=== PATIENT | male | born 1940 | race Caucasian/White ===

== ENCOUNTER → 2017-01-20 | Outpatient (CLI) | payer BC ==
[2017-01-20 10:46] LABS: BASO % 0.1 %; BASO ABS # 0.01 K/uL (0-0.2); COMPLETE YES; EOS % 4.4 %; HEMATOCRIT 52.8 % (42-52); IG% 0.3 %; LYMPH % 21.9 %; LYMPH ABS # 1.63 K/uL (1.2-3.4); MEAN CELL VOLUME 95.8 fL (80-100); MEAN CORPUSCULAR HEMOGLOBIN 32.1 pg (25-34); MEAN CORPUSCULAR HGB CONC 33.5 g/dl (32-36); MEAN PLATELET VOLUME 10.7 fL (7.4-10.4); MONO % 6.6 %; NEUT % 66.7 %; PLATELET COUNT 270 K/uL (130-400); RED BLOOD COUNT 5.51 M/uL (4.7-6.1); WHITE BLOOD COUNT 7.44 K/uL (4.8-10.8)
[2017-01-20 10:58] LABS: CALCIUM 8.9 mg/dl (8.5-10.1)
[2017-01-20 11:07] LABS: ALB/GLOB RATIO 1.3 (0.9-2); ALKALINE PHOSPHATASE 80 U/L (45-117); ALT/SGPT 34 U/L (12-78); AST/SGOT 22 U/L (15-37); BLOOD UREA NITROGEN 16 mg/dl (7-18); BUN/CREATININE RATIO 14.2 (10-20); CARBON DIOXIDE 32 mmol/L (21-32); CHLORIDE 107 mmol/L (98-107); CHOLESTEROL 175 mg/dl (0-200); GLUCOSE 97 mg/dl (70-99); POTASSIUM 4.4 mmol/L (3.5-5.1); SODIUM 143 mmol/L (136-145); TRIGLYCERIDES 116 mg/dl (0-150); VERY LOW DENSITY LIPOPROT CALC 23 mg/dl
[2017-01-20 11:08] LABS: CHOLESTEROL/HDL RATIO 3.8; HDL CHOLESTEROL 46 mg/dl; LDL CHOLESTEROL CALCULATED 106 mg/dl
--- NOTE | 2017-01-24 12:32 | CODING QUERY MEDICAL NECESSITY ---
CQSUPPORTING DIAGNOSIS NEEDED A supporting diagnosis is required for the test/procedure performed on this patient in order for us to be reimbursed by the patient's insurance. Please provide a supporting diagnosis for the following test/procedure listed below next to the test name along with your signature. *If there is no additional diagnosis for this patient that would support the following test/procedure please document that below next to the test/procedure. Test(s)/Procedure(s) that require a supporting diagnosis: DOS 01/20/17 PROSTATE SPECIFIC Provider Signature: Date: Thank you Jenn Miller [employer] Once completed, please kindly fax back to [phone] For questions please call [phone]
== END | disposition home or self-care (01) ==
LOC: C.LABBC 07:41
PROVIDERS: ATTEND Internal Medicine Pulmonary Disease
DX: E78.5 Hyperlipidemia, unspecified (principal); I10 Essential (primary) hypertension; I35.0 Nonrheumatic aortic (valve) stenosis; N40.0 Benign prostatic hyperplasia without lower urinary tract symptoms

== ENCOUNTER 2022-02-05 05:52 | Observation (INO) ==
--- NOTE | 2022-01-10 12:29 | PAT Medication Instructions ---
Medication Instructions Date of Service January 10, 2022 Home Medications Medication Instructions Recorded alprazolam 0.5 mg tablet 0.5 mg PO DAILY PRN #30 tab 09/26/20 carvedilol 6.25 mg tablet 6.25 mg PO BID #180 tab 04/30/21 imipramine HCl 10 mg tablet 10 mg PO HS #90 tab 04/30/21 indapamide 1.25 mg tablet 1.25 mg PO QAM #90 tab 04/30/21 losartan 100 mg tablet 100 mg PO QPM #90 tab 04/30/21 multivitamin (Multiple Vitamins) 1 tab PO QAM levocetirizine 5 mg tablet (Xyzal) 5 mg PO DAILY PRN alprazolam 0.5 mg tablet 0.5 mg PO DAILY PRN carvedilol 6.25 mg tablet 6.25 mg PO BID imipramine HCl 10 mg tablet 10 mg PO HS indapamide 1.25 mg tablet 1.25 mg PO QAM losartan 100 mg tablet 100 mg PO QPM famotidine 20 mg tablet (Pepcid) 20 mg PO DAILY PRN aspirin 81 mg tablet,delayed release (Aspirin Low Dose) 81 mg PO QPM rosuvastatin 20 mg tablet 20 mg PO QPM DO NOT take the morning of surgery multivitamin (Multiple Vitamins) 1 tab PO QAM levocetirizine 5 mg tablet (Xyzal) 5 mg PO DAILY PRN indapamide 1.25 mg tablet 1.25 mg PO QAM Take morning of surgery With a small sip of water, OTHERWISE NOTHING TO EAT OR DRINK AFTER MIDNIGHT: alprazolam 0.5 mg tablet 0.5 mg PO DAILY PRN(if needed) carvedilol 6.25 mg tablet 6.25 mg PO BID famotidine 20 mg tablet (Pepcid) 20 mg PO DAILY PRN(if needed) Take evening before surgery carvedilol 6.25 mg tablet 6.25 mg PO BID imipramine HCl 10 mg tablet 10 mg PO HS losartan 100 mg tablet 100 mg PO QPM aspirin 81 mg tablet,delayed release (Aspirin Low Dose) 81 mg PO QPM rosuvastatin 20 mg tablet 20 mg PO QPM Other Notes If you have any questions please call us at [phone] or [phone] or [phone] or [phone]
--- NOTE | 2022-01-11 14:27 | Anesthesiology Consultation ---
Date of Service January 11, 2022 Assessment & Plan (1) Encounter for pre-operative examination: - COVID screening: Per assessment on 01/11: No known COVID-19 positive contacts or current COVID-19 related symptoms. Travel screen negative. Patient vaccinated. Surgeon arranging preop COVID testing. Awaiting results. - Cardiology office visit (01/11/22): "Patient has a 70% to 80% stenosis in a single branch vessel (proximal OM2) but has nonobstructive CAD otherwise -- he is completely asymptomatic with regards to his branch vessel disease. Based on his high functional status without limiting cardiopulmonary symptoms, normal LV systolic function, and normally functioning bioprosthetic AVR -- patient is an acceptable surgical risk to proceed with partial right nephrectomy as scheduled. There is no need for further ischemic workup at this time. Patient was advised to take his usual dose of Coreg 6.25 mg on the morning of surgery with sips of water. Patient was advised to hold Losartan the evening before surgery. If necessary, patient may stop Aspirin for 7 days leading up to his surgery. Patient verbalized understanding of these instructions." Patient states he was advised by surgeon to hold ASA 5 days prior to surgery (okay per cardiology). Chart Review Chart Review: Acceptable Risk for Surgery and Patient seen in Pre Admission Testing Teaching & Discussion Pre-Anesthesia Teaching/Discussion Notes: Instructed NPO after midnight before surgery,except medications with 15 cc of water. Medication instructions provided according to the PAT guidelines. History Surgery Operation Date: 02/05/22 07:30 Proposed Procedures p Robotic Laparoscopic Assisted Partial Nephrectomy Right - Christiano Silveira MD Height/Weight Height: 5 ft 7 in Weight: 79.8 kg Allergies Allergy/AdvReac Type Severity Reaction Status Date / Time cephalexin Allergy Mild RASH Verified 01/11/22 10:27 Penicillins Allergy Mild RASH Verified 01/11/22 10:27 Sulfa (Sulfonamide Allergy Mild RASH Verified 01/11/22 10:27 Antibiotics) Medications Home Medications Medication Instructions Recorded Confirmed Last Taken multivitamin (Multiple Vitamins) 1 tab PO QAM 05/03/19 01/11/22 11/12/20 levocetirizine 5 mg tablet (Xyzal) 5 mg PO DAILY PRN tab 03/20/20 01/11/22 Unknown alprazolam 0.5 mg tablet 0.5 mg PO DAILY PRN #30 tab 09/26/20 01/11/22 11/13/20 carvedilol 6.25 mg tablet 6.25 mg PO BID #180 tab 04/30/21 01/11/22 Unknown imipramine HCl 10 mg tablet 10 mg PO HS #90 tab 04/30/21 01/11/22 Unknown indapamide 1.25 mg tablet 1.25 mg PO QAM #90 tab 04/30/21 01/11/22 Unknown losartan 100 mg tablet 100 mg PO QPM #90 tab 04/30/21 01/11/22 Unknown famotidine 20 mg tablet (Pepcid) 20 mg PO DAILY PRN 07/09/21 01/11/22 Unknown aspirin 81 mg tablet,delayed 81 mg PO QPM 01/08/22 01/11/22 Unknown release (Aspirin Low Dose) rosuvastatin 20 mg tablet 20 mg PO QPM 01/08/22 01/11/22 Unknown Past Medical History Medical History Anxiety Aortic valve stenosis s/p TAVR 07/2021; follows with Dr. Hylton CAD (coronary artery disease) Non-obstructive CAD per 05/07/21 [facility] cardiac cath Diarrhea IBS Diverticular disease Dyslipidemia GERD (gastroesophageal reflux disease) will take OTC medication PRN History of basal cell carcinoma Hypertension Right kidney mass Sensorineural hearing loss (SNHL) of both ears Exercise / Class Metabolic Activity II 4-5 Yardwork/Stairs/Walk up hill (daily exercising with no CP or SOB (rowing machine, jogging, hiking)) Past Family History Family History Unknown Hypertension Coronary arteriosclerosis Other No family history of adverse response to anesthesia Past Surgical History Surgical History H/O cataract extraction H/O transurethral resection of prostate (2011) History of basal cell carcinoma (BCC) excision History of cardiac catheterization 04/2021 > no stents History of colonoscopy (2003) History of dental surgery History of detached retina repair History of hernia repair BL inguinal S/p TAVR (transcatheter aortic valve replacement), bioprosthetic Past Anesthesia History No Hx of Anesthesia Complications and No Family Hx of Anesthesia Complications History of PONV No Hx of PONV and No Hx of Motion Sickness Social History Smoking Status: Never smoker Do You Dip or Chew Tobacco: No Hx Alcohol Use: Yes Alcohol type: wine alcohol intake frequency: holidays/special occasions only Hx Substance Use: No substance use type: does not use Review of Systems Patient denies chest pain, shortness of breath, dyspnea on exertion, fever, chills, cough, wheezing, palpitations. Physical Exam Vital Signs VITALS BP 140/73 P 57 TEMP 97.9 SP02 99%RA RESP 18 PHYSICAL Mildly decreased cervical extension range of motion. Full TMJ range of motion. TMD 3.5 finger breaths Mallampati Score 3 Dentition: right upper side tooth missing, several implants (sides/molars) Lungs: clear throughout to auscultation Cardiac: regular rate and rhythm, no murmurs noted Spine: large mass over spine - (per patient, chronic/non-tender cyst under surveillance by dermatology) Carotid arteries: negative bruit Extremities: no edema Lab Results Anesthesia Preop Results Results Anesthesia Widget: WBC 7.84 K/uL (4.8-10.8) 01/11/22 Hgb 16.1 g/dL (14.0-18.0) 01/11/22 Hct 48.1 % (42-52) 01/11/22 Plt 259 K/uL (130-400) 01/11/22 Na 140 mmol/L (136-145) 01/11/22 K 4.2 mmol/L (3.5-5.1) 01/11/22 Cl 103 mmol/L (98-107) 01/11/22 CO2 32 mmol/L (21-32) 01/11/22 BUN 16 mg/dl (6-23) 01/11/22 Creat 1.03 mg/dl (0.6-1.4) 01/11/22 Glucose Level 105 mg/dl (70-99(Fasting)) H 01/11/22 Urine Color Yellow 01/11/22 Urine Appearance Clear (Clear) 01/11/22 Urine pH 6.5 (4.5-7.5) 01/11/22 Urine Specific [place] 1.010 (1.000-1.030) 01/11/22 Urine Protein Negative (Negative) 01/11/22 Urine Glucose (UA) Negative (Negative) 01/11/22 Urine Ketones Negative (Negative) 01/11/22 Urine Blood Negative (Negative) 01/11/22 Urine Nitrite Negative (Negative) 01/11/22 Urine Bilirubin Negative (Negative) 01/11/22 Urine Urobilinogen Negative (Negative) 01/11/22 Urine Leukocyte Esterase Negative (Negative) 01/11/22 Blood Type O Positive 01/11/22 Antibody Screen NEGATIVE 01/11/22 Testing Electrocardiogram Date: 08/21/21 SB with frequent PVCs at 72bpm. Improved NS inferior leads TWA. Chest X-Ray Date: 01/14/22 FINDINGS: PA and lateral chest radiographs are correlated with cardiac CT dated 06/26/2021. There is evidence of previous cardiac valve surgery. The heart is mildly enlarged. The pulmonary vasculature is noncongested. Nonspecific interstitial thickening is likely chronic. There is mild bibasilar scarring/atelectasis. The lungs and pleural spaces are otherwise clear. There is no pneumothorax. The skeletal structures are osteopenic. The bony thorax appears intact. IMPRESSION: Mild cardiomegaly with no active disease in the chest. Echocardiogram Date: 07/20/21 EF 65%. No RWMA. No LVH. s/p bioprosthetic aortic replacement (29mm [place]ill S3). The valve is well seated without elevated gradients or regurgitation . Stress Test Date: 04/10/20 Type: exercise Negative exercise stress echo/ECG for ischemia at > 100% MPHR. 10.1 METS. Cardiac Catheterization Date: 05/07/21 Proximal left main 20%. Mid LAD 40-50% followed by 20%. Ostial circumflex 30- 40%. Mid circumflex 30%. Distal circumflex 20%. Proximal OM to 70-80%. Proximal RCA 20% diffusely. Mid RCA 30-40%. Proximal PDA 30%. Mid PL 30-40%. Severe CAD involving OM. Otherwise, multivessel mild and moderate nonobstructive CAD. Previously documented severe aortic stenosis. Plan: Referral for aortic valve replacement evaluation (TAVR done 07/2021).
[2022-02-05] MEDS ORDERED: LR 15ML/HR IV SCH (06:00)
[2022-02-05] MEDS ORDERED: ceFAZolin 2000MG 2,000 MG/15 ML SYR IV SCH (06:00)
[2022-02-05] MEDS ORDERED: CLINDAMYCIN/D5W 600 MG/50 ML BAG IV SCH (06:00)
[2022-02-05] MEDS ORDERED: BUPIVACAINE 0.5 % 5 MG/1 ML MPF 30ML VIAL ONE (06:59)
[2022-02-05] MEDS ORDERED: MANNITOL 25% 12.5 GM/50 ML VIAL IV ONE ×2 (07:06→08:25)
[2022-02-05] MEDS ORDERED: CLINDAMYCIN 600 MG/D5W 50 ML BAG IV ONE (07:09)
[2022-02-05] MEDS ORDERED: MIDAZOLAM HCL 1 MG/ML 2ML VIAL ONE (07:11)
[2022-02-05] MEDS ORDERED: fentaNYL citrate 100 MCG/2 ML VIAL ONE (07:11)
[2022-02-05] MEDS ORDERED: ePHEDrine sulfate 50 MG/ML AMP IV PRN (07:13)
[2022-02-05] MEDS ORDERED: ATROPINE SULFATE 0.1 MG/ML 10ML SYR IV PRN (07:13)
[2022-02-05] MEDS ORDERED: ONDANSETRON INJ 2 MG/ML 2 ML VIAL IV PRN ×2 (07:13→12:30)
--- NOTE | 2022-02-05 07:14 | History & Physical Report ---
Date of Service February 05, 2022 Assessment & Plan (1) Right renal mass: Plan: Plan for definitive surgical treatment of the right renal mass - will approach for partial nephrectomy, but the mass is quite close to the vessels and in a challenging location, if any issues, we will convert to radical nephrectomy History of Present Illness Chief Complaint: right renal mass Primary Care Provider: Pk Schumacher MD 81y/o male w/ a right upper pole, posterior, renal mass discovered during w/u for TAVR now presenting for definitive treatment of the mass Allergies Allergy/AdvReac Type Severity Reaction Status Date / Time cephalexin Allergy Mild RASH Verified 02/05/22 06:31 Penicillins Allergy Mild RASH Verified 02/05/22 06:31 Sulfa (Sulfonamide Allergy Mild RASH Verified 02/05/22 06:31 Antibiotics) Home Medications Medication Instructions Recorded Confirmed Type multivitamin (Multiple Vitamins) 1 tab PO QAM 05/03/19 02/05/22 History levocetirizine 5 mg tablet (Xyzal) 5 mg PO DAILY PRN tab 03/20/20 02/05/22 History alprazolam 0.5 mg tablet 0.5 mg PO DAILY PRN #30 tab 09/26/20 02/05/22 Rx carvedilol 6.25 mg tablet 6.25 mg PO BID #180 tab 04/30/21 02/05/22 Rx imipramine HCl 10 mg tablet 10 mg PO HS #90 tab 04/30/21 02/05/22 Rx indapamide 1.25 mg tablet 1.25 mg PO QAM #90 tab 04/30/21 02/05/22 Rx losartan 100 mg tablet 100 mg PO QPM #90 tab 04/30/21 02/05/22 Rx famotidine 20 mg tablet (Pepcid) 20 mg PO DAILY PRN 07/09/21 02/05/22 History aspirin 81 mg tablet,delayed 81 mg PO QPM 01/08/22 02/05/22 History release (Aspirin Low Dose) rosuvastatin 20 mg tablet 20 mg PO QPM 01/08/22 02/05/22 History Past Med/Surg History Medical History Anxiety Aortic valve stenosis s/p TAVR 07/2021; follows with Dr. Hylton CAD (coronary artery disease) Non-obstructive CAD per 05/07/21 [facility] cardiac cath Diarrhea IBS Diverticular disease Dyslipidemia GERD (gastroesophageal reflux disease) will take OTC medication PRN History of basal cell carcinoma Hypertension Right kidney mass Sensorineural hearing loss (SNHL) of both ears Surgical History H/O cataract extraction H/O transurethral resection of prostate (2011) History of basal cell carcinoma (BCC) excision History of cardiac catheterization 04/2021 > no stents History of colonoscopy (2003) History of dental surgery History of detached retina repair History of hernia repair BL inguinal S/p TAVR (transcatheter aortic valve replacement), bioprosthetic Family History Unknown Hypertension Coronary arteriosclerosis Other No family history of adverse response to anesthesia Social History Smoking Status: Never smoker Second Hand Exposure: No; Do You Dip or Chew Tobacco: No; Hx Alcohol Use: Yes Alcohol type: wine Hx Substance Use: No Preferred Language: Italian Communication Ability: Effective 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 Beliefs That Will Affect Care: None marital status: Current Living Situation: Spouse current occupational status: retired current occupation: Retired Feels Safe at Home: Yes Safety Concerns: Feels Safe At This Time Assistive Devices: Contacts and Glasses Physical Exam Constitutional: well developed and well nourished Neck: neck nontender Respiratory: normal respiratory effort; no respiratory distress and does not use accessory muscles Cardiovascular: Rate/Rhythm: regular rate Vessels: radial pulses present Extremities: no edema Gastrointestinal (Abdomen): Inspection/Auscultation: abdomen normal to inspection Percussion/Palpation: abdomen soft; abdomen nontender and no guarding Musculoskeletal: Head/Neck/Chest: normocephalic and head atraumatic Extremities: extremities normal to inspection Skin: no rashes and no lesions Trauma: no evidence of skin trauma Neurologic: awake; not obtunded Speech / Cognition: normal speech Motor/Sensory: no tremor Psychiatric: Orientation: alert and oriented x 3 Genitourinary: no CVA tenderness Lymphatic: no lymphadenopathy Results & Data ([facility]) Vital Signs (Past 12 Hours) Vital Signs Temp Pulse Resp BP Pulse Ox 02/05/22 06:38 36.4 C L 18 L 18 143/86 H 94
[2022-02-05] MEDS ORDERED: GLYCOPYRROLATE 0.2 MG/ML VIAL ONE (08:41)
[2022-02-05] MEDS ORDERED: ROCURONIUM BROMIDE 10 MG/ML 5 ML VIAL IV ONE ×2 (08:41→10:04)
[2022-02-05] MEDS ORDERED: LARYING-O-JET KIT (LTA) ONE (08:41)
[2022-02-05] MEDS ORDERED: ePHEDrine sulfate 50 MG/ML SYR ONE (08:41)
[2022-02-05] MEDS ORDERED: LIDOCAINE 2% 2 ML VIAL/AMP(20MG/ML) INFIL ONE (08:41)
[2022-02-05] MEDS ORDERED: NEOSTIGMINE METHYLSULFATE 1 MG/ML 10ML VIAL ONE (08:41)
[2022-02-05] MEDS ORDERED: PROPOFOL IV EMULSION 10 MG/ML 20 ML VIAL IV ONE (08:41)
[2022-02-05] MEDS ORDERED: PHENYLEPHRINE 100MCG/ML 5ML SYR ONE (08:42)
[2022-02-05] MEDS ORDERED: ONDANSETRON INJ 2 MG/ML 2 ML VIAL ONE (08:42)
[2022-02-05] MEDS ORDERED: DEXAMETHASONE SOD INJ 4 MG/ML VIAL ONE (08:42)
[2022-02-05] MEDS ORDERED: PHENYLEPHRINE HCL 10 MG/ML VIAL ONE (10:00)
[2022-02-05] MEDS: fentaNYL citrate 100 MCG/2 ML VIAL IV PRN ×4 (11:07→11:29)
--- NOTE | 2022-02-05 11:13 | Operative Report ---
PG Post Operative Report Pre & Post Diagnosis Operation Date: 02/05/22 07:30 Pre-Op Diagnosis: Right Renal Mass Post-Op Diagnosis: Right Renal Mass I identified the patient and participated in the time-out.: Yes Procedure Operation Date: 02/05/22 07:30 Actual Procedures p Robotic Laparoscopic Assisted Right Radical Nephrectomy(Right) - Christiano Silveira MD Surgeon Christiano Silveira MD Chief Warden Mony Tsang; Dr. Jona More Estimated Blood Loss 150 Findings Consistent with Post-Op Diagnosis Specimens Right kidney Description of Procedure Patient was identified in the preoperative holding area, appropriate informed consents reviewed and completed and was transported to the operating suite. Upon arrival received clindamycin. Adequate general anesthesia was achieved and he was placed in the left side down right side up lateral decubitus position. Imaging was pulled up on the computers within the room and we began to insufflate the abdomen. I proceeded to place a robotic port approximately 7 cm below the rib edge along the lateral border of the rectus muscle. Inspection revealed a healthy abdomen without any trauma from the varus. I placed additional ports along the border of the rectus muscle with the highest port being just under the costal margin and 2 additional ports placed inferior to my initial entry location, each space by around 6 cm. I placed 2 midline orthotics prosthetics assistant ports, one immediately supraumbilical and the other approximately 8 cm more cephalad. I also marked a subxiphoid 5 mm liver retraction port. After placing the ports we docked the robot. His omentum draped across the right hemiabdomen I was able to gently retract that exposing the liver colon and underlying kidney. I incised laterally to the colon and mobilized it medially. I then kocherized the duodenum exposing the hilar structures and IVC. We were able to immediately identify the vein but rather than dissect in this area I dissected along the lateral border of the IVC until encountered the gonadal. We then dissected lateral to the gonadal and elevated the kidney. With instruments placed along the psoas I was able to stretch the hilar structures. There is a tubular white structure passing from the kidney down towards the IVCapproximately 4 cm below the renal vein. This was not consistent with p reoperative imaging for an artery and I did find the true artery just at the inferior edge of the vein. The lower structure ultimately proved to be the ureter which was consistent with preoperative imaging which shows the ureter traveling along the groove within the IVC. We dissected around this carefully. After dissecting the hilar structures and clearing a window around both artery and the vein I turned my attention to exposure of the kidney, mobilization of the kidney, and visualization of the mass. Given the location in the upper medial pole I thought this would require a full mobilization of the kidney and I incised outside of Gerota's fascia laterally and superiorly. I dissected the liver cephalad and placed the liver retractor to help hold it out of the way. After maximally mobilizing external to Gerota's I then incised Gerota's over the medial anterior portion of the kidney. After reaching the kidney surface we dissected a flap of fat laterally and pushed up behind the kidney. I continued to dissect around the cephalad most aspect of the kidney until I came to the medial portion. Unfortunately the medial portion is also the location of the tumor and was by far the most difficult to dissect. We continue to work through the posterior aspect of the kidney as well as the superior aspect and ultimately towards the medial side. Just as we are approaching this tumor we encountered venous structures and some bleeding. Although we are able to control this it became clear that we are not going to be able to adequately dissect the mass and leave of an adequate margin for closure after a partial nephrectomy. At that time I made a decision to complete a radical nephrectomy. A staple load was fired across the hilar structures. A second staple load was fired to complete the dissection between the adrenal and the kidney. The remainder of the kidney had already been dissected and was essentially free. I transected the ureter after clipping it superiorly and inferiorly. We then completed the dissection of the inferior cone of Gerota's fascia. The kidney was then entirely mobilized and hemostasis was excellent. Utilizing the lowest robotic port I expanded this incision to approximately 7 cm to allow extraction of the specimen. We then withdrew the specimen and again inspected for hemostasis. Closure was accomplished in multiple layers. The peritoneum and transversalis fascia were closed with 0 Vicryl followed by the internal oblique and ultimately the external oblique with as individual layers. Luis's fascia was reapproximated and the skin was closed with a 4-0 Monocryl. The lap ports were closed with 4-0 Monocryl. The 2 midline ports were also closed with a 0 Vicryl through the fascia prior to the 4-0 Monocryl. Half percent Marcaine was utilized infiltrate all of the incisions. Dermabond was placed over the skin. The case was subsequently concluded and he was reversed of anesthesia and taken to the recovery room in stable condition. Mony Tsang assisted from incision to closure. Dr. More was present intermittently throughout the case to assist. I attest to the content of the Intraoperative Record and any orders documented therein. Any exceptions are noted below.
[2022-02-05 11:35] LABS: Basophils # (auto) 0.02 K/uL (0-0.2); Basophils % (auto) 0.2 %; Eosinophils # (auto) 0.17 K/uL (0-0.5); Eosinophils % (auto) 1.3 %; Hematocrit (blood only) 47.3 % (42-52); Hemoglobin 16.2 g/dL (14.0-18.0); Immature Granulocytes # (auto) 0.05 K/uL (0.00-0.02); Immature Granulocytes % (auto) 0.4 %; Lymphocytes # (auto) 1.09 K/uL (1.2-3.4); Lymphocytes % (auto) 8.3 %; Mean Corpuscular Hemoglobin 32.7 pg (25-34); Mean Corpuscular Volume 95.4 fL (80-100); Mean Platelet Volume 10.9 fL (7.4-10.4); Monocytes # (auto) 0.18 K/uL (0.11-0.59); Monocytes % (auto) 1.4 %; Neutrophils # (auto) 11.57 K/uL (1.4-6.5); Neutrophils % (auto) 88.4 %; Platelet Count 215 K/uL (130-400); RDW Coefficient of Variation 14.1 % (11.5-14.5); RDW Standard Deviation 49.5 fL (36.4-46.3); Red Blood Count 4.96 M/uL (4.7-6.1); White Blood Count 13.08 K/uL (4.8-10.8)
[2022-02-05 11:41] LABS: Mean Corpuscular Hgb Conc 34.2 g/dL (32-36)
[2022-02-05 11:46] LABS: BUN Creatinine Ratio 15.4 (10-20); Calcium 8.9 mg/dl (8.5-10.1); Creatinine Clr Calc Pharmacy 44.8 ml/min; Est GFR (African American) 63.9 ml/min; Est GFR (Non-African American) 55.1 ml/min; Potassium 4.3 mmol/L (3.5-5.1)
--- NOTE | 2022-02-05 12:04 | Anesthesiology Progress Note ---
Date of Service February 05, 2022 Anesthesia Post Procedure Vital Signs Vital Signs: Temp Pulse Pulse Resp BP BP Pulse Ox 02/05/22 11:55 97.9 F 56 L 16 152/86 H 97 02/05/22 11:45 63 15 157/93 H 97 02/05/22 11:35 57 L 13 138/80 93 02/05/22 11:25 56 L 14 154/93 H 96 02/05/22 11:15 61 13 145/91 H 96 02/05/22 11:05 65 20 157/104 H 98 02/05/22 10:57 94 H 18 169/89 H 98 02/05/22 10:47 97.7 F 82 16 151/99 H 98 02/05/22 06:38 97.5 F L 18 L 18 143/86 H 94 Pain Intensity Abdomen: Pain Intensity: 4 Transfer of Care Handoff Completed per policy Notes Mental Status: alert / awake / arousable and participated in evaluation Patient Amnestic to Procedure: Yes Nausea / Vomiting: adequately controlled Pain: adequately controlled Airway Patency, RR, SpO2: stable & adequate BP & HR: stable & adequate Hydration State: stable & adequate Anesthetic Complications: no major complications apparent and Pt Satisfied with anesthetic care
[2022-02-05] MEDS ORDERED: FAMOTIDINE 20 MG TAB PO PRN (12:30)
[2022-02-05] MEDS ORDERED: MoRPHine SULFATE 2 MG/ML CARP IV PRN ×2 (12:30→13:37)
[2022-02-05] MEDS ORDERED: ALPRAZolam 0.5 MG TABLET PO PRN (12:30)
[2022-02-05] MEDS ORDERED: MoRPHine SULFATE 4 MG/ML 1 ML CARP\\VIAL IV PRN (12:30)
[2022-02-05] MEDS ORDERED: ACETAMINOPHEN 325 MG TAB PO PRN (12:30)
[2022-02-05] MEDS ORDERED: oxyCODONE HCL IR 5 MG TAB (IMMEDIATE RELEASE) PO PRN ×2 (12:30)
[2022-02-05] MEDS: ALLERGY Noted to ORDERED Medication SCH ×5 (12:38→17:34)
[2022-02-05] MEDS: LACTATED RINGER'S 1,000 ML IV SCH ×2 (13:24→20:25)
[2022-02-05] MEDS: CLINDAMYCIN/D5W 600 MG/50 ML BAG IV SCH ×2 (13:45→21:53)
[2022-02-05] MEDS ORDERED: LOSARTAN POTASSIUM 50 MG TAB PO SCH (21:00)
[2022-02-05] MEDS ORDERED: ROSUVASTATIN CALCIUM 20 MG TAB PO SCH (21:00)
[2022-02-05] MEDS ORDERED: ASPIRIN 81 MG ECTAB PO SCH (21:00)
[2022-02-05] MEDS ORDERED: IMIPRAMINE HCL 10 MG TAB PO SCH (21:00)
[2022-02-05] MEDS: HEPARIN SOD 5,000 UNIT/0.5 ML VIAL SQ SCH (21:56)
[2022-02-05] MEDS: carvediloL 6.25 MG TAB PO SCH (21:57)
[2022-02-05] MEDS: DOCUSATE SODIUM 100 MG CAP PO SCH (21:57)
[2022-02-06] MEDS: CLINDAMYCIN/D5W 600 MG/50 ML BAG IV SCH (05:28)
[2022-02-06] MEDS: LACTATED RINGER'S 1,000 ML IV SCH (05:28)
[2022-02-06 06:52] LABS: Basophils # (auto) 0.01 K/uL (0-0.2); Basophils % (auto) 0.1 %; Hematocrit (blood only) 43.1 % (42-52); Hemoglobin 14.4 g/dL (14.0-18.0); Immature Granulocytes # (auto) 0.03 K/uL (0.00-0.02); Immature Granulocytes % (auto) 0.2 %; Lymphocytes # (auto) 1.01 K/uL (1.2-3.4); Lymphocytes % (auto) 6.8 %; Mean Corpuscular Hemoglobin 31.2 pg (25-34); Mean Corpuscular Hgb Conc 33.4 g/dL (32-36); Mean Corpuscular Volume 93.5 fL (80-100); Mean Platelet Volume 10.1 fL (7.4-10.4); Monocytes # (auto) 1.45 K/uL (0.11-0.59); Monocytes % (auto) 9.8 %; Neutrophils # (auto) 12.25 K/uL (1.4-6.5); Neutrophils % (auto) 83.1 %; Platelet Count 229 K/uL (130-400); RDW Coefficient of Variation 14.2 % (11.5-14.5); RDW Standard Deviation 48.5 fL (36.4-46.3); Red Blood Count 4.61 M/uL (4.7-6.1); White Blood Count 14.75 K/uL (4.8-10.8)
[2022-02-06 07:07] LABS: BUN Creatinine Ratio 14.4 (10-20); Calcium 8.7 mg/dl (8.5-10.1); Creatinine Clr Calc Pharmacy 34.4 ml/min; Est GFR (African American) 46.5 ml/min; Est GFR (Non-African American) 40.1 ml/min; Potassium 3.7 mmol/L (3.5-5.1)
[2022-02-06] MEDS: carvediloL 6.25 MG TAB PO SCH (08:20)
[2022-02-06] MEDS: DOCUSATE SODIUM 100 MG CAP PO SCH (08:20)
[2022-02-06] MEDS: HEPARIN SOD 5,000 UNIT/0.5 ML VIAL SQ SCH (08:20)
[2022-02-06] MEDS ORDERED: INDAPAMIDE 1.25 MG TAB PO SCH (09:00)
--- NOTE | 2022-02-06 09:46 | Urology Progress Note ---
Date of Service February 06, 2022 Assessment & Plan (1) Right renal mass: Plan: Postop day 1 status post right radical nephrectomy Voiding trial now Advance diet Likely discharge home later today Admission and Anticipated Discharge Date Admission Date: February 05, 2022 Subjective 81-year-old gentleman status post right radical nephrectomy yesterday I initially attempted partial nephrectomy but could not dissect the mass adequately and had to convert to radical He tolerated the procedure very well and feels well now He has been out of bed His labs are appropriate with expected rise in creatinine given his nephrectomy Good clear urine output Ask about possible discharge home todayI think this is very reasonable Physical Exam Physical Exam: Incisions all appropriate, no bruising, skin glue in place Urine clear Results & Data ([facility]) Vital Signs (Past 12 Hours) Vital Signs Temp Pulse Resp BP Pulse Ox 02/06/22 07:33 36.7 C 69 16 124/72 95 02/06/22 02:40 37.2 C 72 16 136/72 93 02/05/22 21:50 36.7 C 84 16 131/74 92 02/05/22 21:48 88 L PG Care Time/CCT Total # of Minutes Spent Total Time Spent with Patient: Total time spent is greater than 50% in coordination of care (as documented) at patient's floor/unit and/or counseling patient: Coding Level of Care Code None Diagnoses Right renal mass N28.89
--- NOTE | 2022-02-07 16:10 | Discharge Summary ---
Date of Service February 07, 2022 Admission HPI Per Admitting Provider 81y/o male w/ a right upper pole, posterior, renal mass discovered during w/u for TAVR presenting for definitive treatment of the mass Admission Exam Per Admitting Provider Constitutional: well developed and well nourished Neck: neck nontender Respiratory: normal respiratory effort; no respiratory distress and does not use accessory muscles Cardiovascular: Rate/Rhythm: regular rate Vessels: radial pulses present Extremities: no edema Gastrointestinal (Abdomen): Inspection/Auscultation: abdomen normal to inspection Percussion/Palpation: abdomen soft; abdomen nontender and no g uarding Musculoskeletal: Head/Neck/Chest: normocephalic and head atraumatic Extremities: extremities normal to inspection Skin: no rashes and no lesions Trauma: no evidence of skin trauma Neurologic: awake; not obtunded Speech / Cognition: normal speech Motor/Sensory: no tremor Psychiatric: Orientation: alert and oriented x 3 Genitourinary: no CVA tenderness Lymphatic: no lymphadenopathy Principal Diagnosis Right renal mass Discharge Exam Constitutional no acute distress Respiratory no respiratory distress and no labored breathing Neurologic moves all extremities and awake Psychiatric Orientation: alert, oriented x 3 and cooperative Genitourinary Incisions all appropriate, no bruising, skin glue in place Urine clear Discharge Data Allergies Allergy/AdvReac Type Severity Reaction Status Date / Time cephalexin Allergy Mild RASH Verified 02/05/22 06:31 Penicillins Allergy Mild RASH Verified 02/05/22 06:31 Sulfa (Sulfonamide Allergy Mild RASH Verified 02/05/22 06:31 Antibiotics) Procedures Performed Operation Date: 02/05/22 07:30 Actual Procedures p Robotic Laparoscopic Assisted Right Radical Nephrectomy(Right) - Christiano Silveira MD Hospital Course (1) Right renal mass: 81-year-old male admitted status post right radical nephrectomy - No acute issues postoperatively. - Stable overnight with appropriate labs with expected rise in creatinine given his nephrectomy. - Good urine output. - Pt passed a voiding trial postop day #1. - Tolerated diet. - Ambulated without issue. - Minimal pain. - Pt discharged in stable condition postop day #1. Total Time Total Time Spent Total Time Spent (In Minutes): 15 Discharge Plan Discharge Items Patient Disposition: Home - Self-Care Reason For Visit: Right Renal Mass Discharge Diagnosis: Right renal mass Activity: Per Instructions section Lifting: No more than 25 pounds Bathing Comment: Okay to shower tomorrow, no tub baths or soaking Sexual Activity: Wait until after follow-up appointment Exercise/Sports: Wait until after follow-up appointment Driving/Machine Use: Do not drive while taking narcotic pain medication Non-emergency contact: Surgeon and Urologist Call non-emergency contact if: your pain is not controlled, your pain is concerning for you, your wound has increased redness, your wound has increased drainage and your wound pain has increased Follow-up/Referrals: Pk Schumacher MD [Primary Care Provider] - [facility],Nurse [FAKE FOR SCHEDULES] - 02/07/22 3:10 pm Diet: Regular Addtl Attending Provider Instructions: Please take all medications as prescribed and keep all follow-ups as scheduled. Please call our office at [phone] with any questions, concerns or need to reschedule appointments for any reason. We are happy to assist you. Please do not take Alprazolam with Percocet. Monitor for dizziness/drowsiness. Recovering at home: We recommend having someone with you for the first few days after surgery to help care for you. It is okay to shower tomorrow. Please avoid swimming, bathing or using hot tub until incisions are well healed. Avoid driving until you are not requiring pain medication any further. Walk at least a few times a day. Increase your distance, as you feel able. Stairs in your home are okay. Please avoid strenuous or sexual activity until your follow-up. We recommend using stool softener (i.e. Colace) to prevent constipation and straining, especially the first two weeks post operatively. Call [facility] at [phone] if you experience: Chest pain or trouble breathing (call 241 or go to the hospital). Fever of 101F or higher Symptoms of infection at incision site, including redness or swelling, warmth, or bad-smelling drainage If you have catheter, and you notice: o Bloody urine or drainage that is dark red or has large clots (Please remember a small amount of blood is normal) o No drainage from the catheter for more than 6 hours o The catheter comes out of your bladder Pain that is not controlled with medicines Pending Studies at Discharge: Yes Studies:: Pathology Stand-Alone Forms: [facility], Opioid Pain Management, Smoking Cessation Medications and DC Order Prescriptions: New oxycodone-acetaminophen [Percocet] 5-325 mg tablet 1 tab PO TID PRN (Reason: pain) Qty: 14 RF: 0 docusate sodium [Colace] 100 mg capsule 100 mg PO BID Qty: 60 RF: 0 Continued alprazolam 0.5 mg tablet 0.5 mg PO DAILY PRN (Reason: anxiety) Qty: 30 RF: 2 levocetirizine [Xyzal] 5 mg tablet 5 mg PO DAILY PRN (Reason: allergy season) RF: 0 multivitamin [Multiple Vitamins] tablet 1 tab PO QAM RF: 0 carvedilol 6.25 mg tablet 6.25 mg PO BID Qty: 180 RF: 3 imipramine HCl 10 mg tablet 10 mg PO HS Qty: 90 RF: 3 indapamide 1.25 mg tablet 1.25 mg PO QAM Qty: 90 RF: 3 losartan 100 mg tablet 100 mg PO QPM Qty: 90 RF: 3 famotidine [Pepcid] 20 mg tablet 20 mg PO DAILY PRN (Reason: gerd) RF: 0 aspirin [Buddy Low Dose Aspirin] 81 mg tablet,delayed release (DR/EC) 81 mg PO QPM RF: 0 rosuvastatin 20 mg tablet 20 mg PO QPM RF: 0 Discharge Orders: Discharge Order (Routine); Ordered 02/06/22 Ordered By: Mony Cox/Other Patient Handouts: ED Urinary Retention, Male Admission Data Admit Date/Time: 02/05/22 10:55 Attending Provider: Christiano Silveira Admit Provider: Christiano Silveira Primary Care Provider: Pk Schumacher Other Interventions: Discharge Summary Assessment (RN) Last Done: 02/06/22 15:54 Coding Level of Care Code D/C DAY MANAGEMENT <30 MINS Diagnoses Right renal mass N28.89
== END 2022-02-06 17:07 | disposition home or self-care (01) ==
LOC: ASU 05:52 → 3N 10:55 → INTOOBSV 10:55

== ENCOUNTER 2023-12-23 02:09 | Inpatient (IN) ==
[2023-12-23] MEDS: SODIUM CHLORIDE 0.9% 500 ML IV STA (02:32)
[2023-12-23 02:46] LABS: Hematocrit (blood only) 45.8 % (42.0-52.0); Hemoglobin 15.4 g/dl (14.0-18.0); Mean Corpuscular Hemoglobin 32.3 pg (25.0-34.0); Mean Corpuscular Hgb Conc 33.6 g/dL (32.0-36.0); Mean Platelet Volume 10.1 fL (9.4-12.4); Platelet Count 290 K/uL (130-400); RDW Coefficient of Variation 13.6 % (11.5-14.5); RDW Standard Deviation 48.5 fL (36.4-46.3); Red Blood Count 4.77 M/uL (4.70-6.10); White Blood Count 19.89 K/ul (4.8-10.8)
[2023-12-23 02:59] LABS: Albumin Globulin Ratio 1.7 (0.9-2); Albumin Level 3.8 gm/dl (3.4-5.0); BUN Creatinine Ratio 15.1 (10-20); Bilirubin,Total 1.8 mg/dl (0.2-1.0); Calcium 9.2 mg/dl (8.6-10.3); Creatinine Clr Calc Pharmacy 25.3 ml/min; Est GFR (African American) 31.5 ml/min; Est GFR (Non-African American) 27.2 ml/min; Globulin 2.3 gm/dl (2.5-4.0); Total Protein 6.1 gm/dl (6.0-8.3)
[2023-12-23 03:04] LABS: Troponin I High Sensitivity 18.2 pg/ml (0-20)
[2023-12-23 03:19] LABS: INR 1.1 (0.9-1.1); Partial Thromboplastin Ratio 0.9; Partial Thromboplastin Time 25 Seconds (21-31); Prothrombin Time 11.8 Seconds (9.0-12.0)
--- NOTE | 2023-12-23 03:28 | Emergency Department Note ---
Impression & Plan CLAUDIA (acute kidney injury), GIB (gastrointestinal bleeding), Hypotension ED Provider Note NAME: KEREN COLEMAN AGE: 83 SEX: M : 1940 ARRIVES VIA: Ambulance INFORMANT: Patient, ED PROVIDER(S): Katerin Graham MD CHIEF COMPLAINT: GI bleed HPI: This is an 83-year-old male presenting for GI bleed. Patient states that he was sleeping when he woke up in the bed was somewhat covered in blood. He then walked to the bathroom and noted that it is all over his floor in the bathroom as well. He is not member feeling any need for defecation. He states he did not even know that he was bleeding. He states he has had no abdominal pain or rectal pain. Denies any lightheadedness or dizziness today. No chest pain or shortness of breath. Patient have a colonoscopy done yesterday with 7-8 polyps removed. He has been doing well since then until this evening. ROS: See above HPI for pertinent positives & negatives. A total of 10 systems reviewed and were otherwise negative. PHYSICAL EXAMINATION: General: resting comfortably in no acute distress Head: Normocephalic and atraumatic Eyes: Normal inspection, extraocular muscles intact Ear, nose, throat: Normal external exam Neck: Normal range of motion Respiratory: lungs clear to auscultation bilaterally Cardiovascular: Regular rate/rhythm, no murmur GI: soft, nontender, no guarding or rebound, brown/black stool noted on rectal exam Extremities: nontender, moves all extremities Neuro: The patient awake and alert, appropriately conversive, no focal deficits, symmetric faces Skin: Warm, dry, and intact MEDICAL DECISION MAKING: This is an 83-year-old male presented for GI bleed. Patient was reportedly covered of blood when he arrived to the ER as per nursing. -He is borderline hypotensive at this time, slight tachycardia on occasion -Blood work reassuring without significant anemia however this is still early in the course -He is having leukocytosis to almost 20 at this time. -Patient does have 1 solitary kidney and new creatinine elevation 2.18 -Patient was positive for orthostatics as per nursing -Patient required mission for GI bleed, creatinine elevation and orthostatics. Differential diagnosis: Lower GI bleed, idiopathic bleed, trauma from procedure ER treatment provided: See below Diagnostics interpreted by me: ECG: ECG independently interpreted by me with normal sinus rhythm, rate of 98, left axis deviation, normal OR, normal QRS, normal QTc, no ST segment elevations consistent with STEMI criteria Cardiac Monitoring: An order was placed for continuous cardiac monitoring. The monitor shows a rate of 90 with sinus rhythm rhythm. Laboratory studies: As stated above and show below. Imaging studies: See below. Past Med/Surg History Medical History History of colon polyps pt unsure/possible Urinary leakage Right kidney mass hx - sx intervention only. CAD (coronary artery disease) Non-obstructive CAD per 05/07/21 [facility] cardiac cath Diarrhea IBS Diverticular disease GERD (gastroesophageal reflux disease) will take OTC medication PRN History of basal cell carcinoma Anxiety Sensorineural hearing loss (SNHL) of both ears Aortic valve stenosis s/p TAVR 07/2021; follows with Dr. Hylton Dyslipidemia Hypertension Surgical History H/O right nephrectomy (~01/2022) History of cardiac catheterization 04/2021 > no stents History of basal cell carcinoma (BCC) excision S/p TAVR (transcatheter aortic valve replacement), bioprosthetic [place] H/O cataract extraction History of dental surgery History of detached retina repair H/O transurethral resection of prostate (2011) History of colonoscopy (2003) History of hernia repair BL inguinal Family History Unknown Hypertension Coronary arteriosclerosis Other No family history of adverse response to anesthesia Social History Smoking Status: Never smoker Second Hand Exposure: No; Do You Dip or Chew Tobacco: No; Hx Alcohol Use: Yes Alcohol type: beer Hx Substance Use: No Preferred Language: Persian Communication Ability: Effective Conveyor System Dispatcher Required: No Beliefs That Will Affect Care: None marital status: Current Living Situation: Spouse current occupational status: retired current occupation: Retired Feels Safe at Home: Yes Assistive Devices: Glasses Allergies Allergies Allergy/AdvReac Type Severity Reaction Status Date / Time cephalexin Allergy Intermediate RASH Verified 12/23/23 02:41 Penicillins Allergy Intermediate RASH Verified 12/23/23 02:41 Sulfa (Sulfonamide Allergy Intermediate RASH Verified 12/23/23 02:41 Antibiotics) Home Meds Home Medications Medication Instructions Recorded Confirmed multivitamin (Multiple Vitamins 1 tab PO QAM 05/03/19 12/23/23 tablet) levocetirizine 5 mg tablet (Xyzal) 5 mg PO UD PRN allergy season 03/20/20 12/23/23 famotidine 20 mg tablet (Pepcid) 20 mg PO UD PRN gerd 07/09/21 12/23/23 aspirin 81 mg tablet,delayed 81 mg PO QPM 01/08/22 12/23/23 release (Buddy Low Dose Aspirin) alprazolam 0.5 mg tablet 0.5 mg PO UD PRN anxiety 12/09/23 12/23/23 Previous Rx's Medication Instructions Recorded azithromycin 500 mg tablet 500 mg PO ONCE PRN dental 09/18/23 procedure #1 tab carvedilol 6.25 mg tablet 6.25 mg PO BID #180 tabs 11/17/23 imipramine HCl 10 mg tablet 10 mg PO HS #90 tabs 11/17/23 indapamide 1.25 mg tablet 1.25 mg PO QAM #90 tabs 11/17/23 losartan 100 mg tablet 100 mg PO QPM #90 tabs 11/17/23 rosuvastatin 20 mg tablet 20 mg PO QPM #90 tabs 11/17/23 Results & Data (ED) Vital Signs Vital Signs - 24 hr 12/23/23 02:12 12/23/23 02:13 12/23/23 02:14 Temperature 36.4 C L Temperature Source Oral Pulse Rate - Lying Pulse Rate - Sitting Pulse Rate - Standing Pulse Rate 99 H 99 H 99 H Pulse Rate from SpO2 Sensor Pulse Rhythm Regular Pulse Strength Normal Respiratory Rate 23 19 Respiratory Effort / Characteristics Non-Labored Respiratory Depth Normal Respiratory Pattern Regular Blood Pressure - Lying Blood Pressure - Sitting Blood Pressure- Standing Blood Pressure 105/69 Blood Pressure Mean 81 Blood Pressure Position Sitting Pulse Oximetry 97 Oxygen Delivery Method Room Air Sepsis Recent Fever Within 48 Hours No Sepsis New/Unexplained Change in Mental Status No Sepsis Action Taken by Nursing No Action Required 12/23/23 02:15 12/23/23 02:16 12/23/23 02:16 Temperature Temperature Source Pulse Rate - Lying Pulse Rate - Sitting Pulse Rate - Standing Pulse Rate 101 H 103 H Pulse Rate from SpO2 Sensor 103 H Pulse Rhythm Pulse Strength Respiratory Rate 21 22 Respiratory Effort / Characteristics Respiratory Depth Respiratory Pattern Blood Pressure - Lying Blood Pressure - Sitting Blood Pressure- Standing Blood Pressure 105/69 Blood Pressure Mean 73 Blood Pressure Position Pulse Oximetry 97 Oxygen Delivery Method Sepsis Recent Fever Within 48 Hours Sepsis New/Unexplained Change in Mental Status Sepsis Action Taken by Nursing 12/23/23 02:22 12/23/23 02:22 12/23/23 02:23 Temperature Temperature Source Pulse Rate - Lying Pulse Rate - Sitting Pulse Rate - Standing Pulse Rate 96 H 99 H Pulse Rate from SpO2 Sensor 95 H Pulse Rhythm Regular Pulse Strength Respiratory Rate 18 23 Respiratory Effort / Characteristics Respiratory Depth Respiratory Pattern Blood Pressure - Lying Blood Pressure - Sitting Blood Pressure- Standing Blood Pressure 94/77 L Blood Pressure Mean 84 Blood Pressure Position Pulse Oximetry 93 97 Oxygen Delivery Method Room Air Sepsis Recent Fever Within 48 Hours Sepsis New/Unexplained Change in Mental Status Sepsis Action Taken by Nursing 12/23/23 02:30 12/23/23 02:30 12/23/23 02:31 Temperature Temperature Source Pulse Rate - Lying Pulse Rate - Sitting Pulse Rate - Standing Pulse Rate 100 H 95 H Pulse Rate from SpO2 Sensor Pulse Rhythm Pulse Strength Respiratory Rate 20 25 H Respiratory Effort / Characteristics Respiratory Depth Respiratory Pattern Blood Pressure - Lying Blood Pressure - Sitting Blood Pressure- Standing Blood Pressure 79/50 L Blood Pressure Mean 64 Blood Pressure Position Pulse Oximetry Oxygen Delivery Method Sepsis Recent Fever Within 48 Hours Sepsis New/Unexplained Change in Mental Status Sepsis Action Taken by Nursing 12/23/23 02:31 12/23/23 02:45 12/23/23 02:45 Temperature Temperature Source Pulse Rate - Lying Pulse Rate - Sitting Pulse Rate - Standing Pulse Rate 90 Pulse Rate from SpO2 Sensor Pulse Rhythm Pulse Strength Respiratory Rate 17 Respiratory Effort / Characteristics Respiratory Depth Respiratory Pattern Blood Pressure - Lying Blood Pressure - Sitting Blood Pressure- Standing Blood Pressure 101/74 105/69 Blood Pressure Mean 79 75 Blood Pressure Position Pulse Oximetry Oxygen Delivery Method Sepsis Recent Fever Within 48 Hours Sepsis New/Unexplained Change in Mental Status Sepsis Action Taken by Nursing 12/23/23 02:50 12/23/23 02:51 12/23/23 02:54 Temperature Temperature Source Pulse Rate - Lying 94 H Pulse Rate - Sitting 100 H Pulse Rate - Standing 106 H Pulse Rate Pulse Rate from SpO2 Sensor Pulse Rhythm Pulse Strength Respiratory Rate Respiratory Effort / Characteristics Respiratory Depth Respiratory Pattern Blood Pressure - Lying 103/62 Blood Pressure - Sitting 82/58 L Blood Pressure- Standing 78/57 L Blood Pressure 103/62 117/79 Blood Pressure Mean 70 89 Blood Pressure Position Pulse Oximetry Oxygen Delivery Method Sepsis Recent Fever Within 48 Hours Sepsis New/Unexplained Change in Mental Status Sepsis Action Taken by Nursing 12/23/23 03:00 12/23/23 03:00 12/23/23 03:15 Temperature Temperature Source Pulse Rate - Lying Pulse Rate - Sitting Pulse Rate - Standing Pulse Rate 94 H Pulse Rate from SpO2 Sensor Pulse Rhythm Pulse Strength Respiratory Rate 16 Respiratory Effort / Characteristics Respiratory Depth Respiratory Pattern Blood Pressure - Lying Blood Pressure - Sitting Blood Pressure- Standing Blood Pressure 96/74 L 101/68 Blood Pressure Mean 83 78 Blood Pressure Position Pulse Oximetry Oxygen Delivery Method Sepsis Recent Fever Within 48 Hours Sepsis New/Unexplained Change in Mental Status Sepsis Action Taken by Nursing 12/23/23 03:15 12/23/23 03:30 12/23/23 03:30 Temperature Temperature Source Pulse Rate - Lying Pulse Rate - Sitting Pulse Rate - Standing Pulse Rate 94 H 94 H Pulse Rate from SpO2 Sensor Pulse Rhythm Pulse Strength Respiratory Rate 18 16 Respiratory Effort / Characteristics Respiratory Depth Respiratory Pattern Blood Pressure - Lying Blood Pressure - Sitting Blood Pressure- Standing Blood Pressure 99/72 L Blood Pressure Mean 81 Blood Pressure Position Pulse Oximetry Oxygen Delivery Method Sepsis Recent Fever Within 48 Hours Sepsis New/Unexplained Change in Mental Status Sepsis Action Taken by Nursing 12/23/23 03:45 12/23/23 03:45 12/23/23 04:00 Temperature Temperature Source Pulse Rate - Lying Pulse Rate - Sitting Pulse Rate - Standing Pulse Rate 92 H Pulse Rate from SpO2 Sensor Pulse Rhythm Pulse Strength Respiratory Rate 20 Respiratory Effort / Characteristics Respiratory Depth Respiratory Pattern Blood Pressure - Lying Blood Pressure - Sitting Blood Pressure- Standing Blood Pressure 96/74 L 104/74 Blood Pressure Mean 83 87 Blood Pressure Position Pulse Oximetry Oxygen Delivery Method Sepsis Recent Fever Within 48 Hours Sepsis New/Unexplained Change in Mental Status Sepsis Action Taken by Nursing 12/23/23 04:00 12/23/23 04:30 12/23/23 04:30 Temperature Temperature Source Pulse Rate - Lying Pulse Rate - Sitting Pulse Rate - Standing Pulse Rate 92 H 97 H Pulse Rate from SpO2 Sensor Pulse Rhythm Pulse Strength Respiratory Rate 16 15 Respiratory Effort / Characteristics Respiratory Depth Respiratory Pattern Blood Pressure - Lying Blood Pressure - Sitting Blood Pressure- Standing Blood Pressure 97/79 L Blood Pressure Mean 86 Blood Pressure Position Pulse Oximetry Oxygen Delivery Method Sepsis Recent Fever Within 48 Hours Sepsis New/Unexplained Change in Mental Status Sepsis Action Taken by Nursing Laboratory Data 12/23/23 19:36 12/24/23 00:45 Lab Results 12/23/23 12/23/23 Range/Units 02:17 02:23 WBC 19.89 H (4.8-10.8) K/ul RBC 4.77 (4.70-6.10) M/uL Hgb 15.4 (14.0-18.0) g/dl Hct 45.8 (42.0-52.0) % MCV 96.0 (80.0-100.0) fL MCH 32.3 (25.0-34.0) pg MCHC 33.6 (32.0-36.0) g/dL RDW Std Deviation 48.5 H (36.4-46.3) fL RDW Coeff of Kike 13.6 (11.5-14.5) % Plt Count 290 (130-400) K/uL MPV 10.1 (9.4-12.4) fL PT 11.8 (9.0-12.0) Seconds INR 1.1 (0.9-1.1) APTT 25 (21-31) Seconds PTT Ratio 0.9 Sodium 139 (136-145) mmol/L Potassium 4.0 (3.5-5.1) mmol/L Chloride 105 (98-107) mmol/L Carbon Dioxide 26 (21-32) mmol/L Anion Gap 8 (3-11) BUN 33 H (6-23) mg/dl Creatinine 2.18 H (0.6-1.4) mg/dl Est Cr Clr Drug Dosing 25.3 ml/min Est GFR ( Amer) 31.5 ml/min Est GFR (Non-Af Amer) 27.2 ml/min BUN/Creatinine Ratio 15.1 (10-20) Glucose 184 H (70-99(Fasting)) mg/dl Calcium 9.2 (8.6-10.3) mg/dl Total Bilirubin 1.8 H (0.2-1.0) mg/dl AST 21 (13-39) U/L ALT 16 (7-52) U/L Alkaline Phosphatase 58 (34-104) U/L Troponin I High Sens 18.2 (0-20) pg/ml Total Protein 6.1 (6.0-8.3) gm/dl Albumin 3.8 (3.4-5.0) gm/dl Globulin 2.3 L (2.5-4.0) gm/dl Albumin/Globulin Ratio 1.7 (0.9-2) Blood Type O Positive Antibody Screen NEGATIVE Administered Medications Pantoprazole Sodium 40 mg/ (Syringe) 10 mls @ 5 mls/min IV DAILY@1100 LENCHO Stop: 01/22/24 10:59 Last Admin: 12/23/23 16:00 Dose: 5 mls/min Documented By: Ciprofloxacin (Cipro / D5w) 400 mg in 200 mls @ 200 mls/hr IV Q24H LENCHO; Protocol Stop: 01/03/24 03:59 Last Infusion: 12/24/23 05:25 Dose: Infused Documented By: Admin: 12/24/23 04:25 Dose: 200 mls/hr Documented By: NATAN Sodium Chloride (Nss) 500 mls @ 15 mls/hr IV .Q24H LENCHO Stop: 01/22/24 11:14 Last Infusion: 12/23/23 11:17 Dose: Infused Documented By: Admin: 12/23/23 11:17 Dose: 15 mls/hr Documented By: EAN Discontinued Medications Sodium Chloride (Nss) 500 mls @ 999 mls/hr IV .Q31M STA Stop: 12/23/23 02:53 Last Infusion: 12/23/23 03:03 Dose: Infused Documented By: Admin: 12/23/23 02:32 Dose: 999 mls/hr Documented By: GUSTAVO Sodium Chloride (Nss) 1,000 mls @ 999 mls/hr IV .Q1H1M ONE Stop: 12/23/23 05:28 Last Infusion: 12/23/23 06:21 Dose: Infused Documented By: Admin: 12/23/23 05:10 Dose: 999 mls/hr Documented By: GUSTAVO Ciprofloxacin (Cipro / D5w) 400 mg in 200 mls @ 200 mls/hr IV NOW STA; Protocol Stop: 12/23/23 05:32 Last Infusion: 12/23/23 15:10 Dose: Infused Documented By: Admin: 12/23/23 05:10 Dose: 200 mls/hr Documented By: GUSTAVO Sodium Chloride (Nss) 1,000 mls @ 60 mls/hr IV .[id number] LENCHO Stop: 12/24/23 05:52 Last Admin: 12/23/23 16:39 Dose: 60 mls/hr Documented By: Infusion: 12/23/23 16:09 Dose: Infused Documented By: Admin: 12/23/23 06:22 Dose: 125 mls/hr Documented By: Propofol (Propofol Iv Emulsion 10 Mg/Ml 20 Ml Vial) Confirm Administered Dose 400 mg IV .STK-MED ONE Stop: 12/23/23 11:34 Last Admin: 12/23/23 15:09 Dose: Not Given Documented By: Sodium Biphosphate/Sodium Phosphate (Sod Phosphate/Sod Biphosphate Enema 132 Ml Btl) 132 ml OR NOW STA Stop: 12/23/23 09:38 Last Admin: 12/23/23 10:10 Dose: 132 ml Documented By: DEEPTI Sodium Biphosphate/Sodium Phosphate (Sod Phosphate/Sod Biphosphate Enema 132 Ml Btl) 132 ml OR NOW STA Stop: 12/23/23 09:39 Last Admin: 12/23/23 10:25 Dose: 132 ml Documented By: DEEPTI Discharge Plan Visit Data Chief Complaint: Rectal Bleed Stated Complaint: LOWER GI BLEED ED Provider: Katerin Graham Discharge Problem: CLAUDIA (acute kidney injury), GIB (gastrointestinal bleeding), Hypotension Patient Disposition: Admitted As Inpatient Discharge Instructions Interventions: ED Discharge Assessment Last Done: 12/23/23 14:08
[2023-12-23] MEDS ORDERED: ONDANSETRON INJ 2 MG/ML 2 ML VIAL IV PRN (04:29)
[2023-12-23] MEDS: SODIUM CHLORIDE 0.9% 1,000 ML IV ONE (05:10)
[2023-12-23] MEDS: CIPROFLOXACIN / D5W 400 MG/200 ML BAG IV STA (05:10)
--- NOTE | 2023-12-23 06:03 | History & Physical Report ---
Date of Service December 23, 2023 Assessment & Plan (1) Lower GI bleeding: (2) Acute kidney injury superimposed on chronic kidney disease: (3) Renal cell carcinoma: (4) Tubular adenoma of colon: (5) GERD (gastroesophageal reflux disease): (6) CAD (coronary artery disease): (7) S/p TAVR (transcatheter aortic valve replacement), bioprosthetic: (8) Hypertension: (9) Aortic valve stenosis: (10) H/O right nephrectomy: (11) Anxiety: Plan Lower GI bleeding- Initial hemoglobin 15.4 and hematocrit 45.8 N.p.o. except ice chips Colonoscopy earlier in the day on 12/21, with 8 polyps removed, reportedly tolerated well Also history of bleeding hemorrhoids over the past few months Patient report he was off aspirin for 2 days prior to procedure Noted to have 1 large bleeding episode that he was unaware of while in bed asleep, followed by trickling of blood Since he has been in the ED, he has had no further bleeding Initial hemoglobin 15.4, however, patient's blood pressure upon arrival was 79/50 H&H every 6 hours Type and screen already done Received 500 cc normal saline bolus from the ED Give an additional 1 L bolus now, then NSS at 125 mls per hour x 2 L Pantoprazole 40 mg IV daily Zofran 4 mg IV every 6 hours as needed Cipro 400 mg IV every 12 hours, patient is penicillin and cephalosporin allergic Consult gastroenterology Acute kidney injury superimposed on CKD/renal cell carcinoma status post right nephrectomy- Creatinine 2.18, with baseline 1.39 Increase IV fluids as noted above Follow BMP every 6 hours today Hypertension/status post TAVR/CAD- Holding carvedilol, indapamide, and losartan due to hypotension Most recent echo on 10/17/2023, with ejection fraction 50-55% Admission and Anticipated Discharge Date Admission Date: December 23, 2023 History of Present Illness Chief Complaint: The patient presents to the emergency department with complaint of a large bloody bowel movement that occurred in his sleep, unbeknownst to him, following a colonoscopy with a polyps removed earlier in the day. Primary Care Provider: Pk Schumacher MD The patient is an 83-year-old male with a past medical history including renal cell carcinoma status post nephrectomy, tubular adenoma of colon, GERD, anxiety, BPH, CAD, status post TAVR, SNHL bilaterally, dyslipidemia, hypertension and aortic valve stenosis. The patient underwent a colonoscopy earlier in the day on 12/21, which she tolerated well, and reportedly had 8 polyps removed. Patient reports while sleeping this evening, he became aware of his bed being soaked with blood, and as he walked to the bathroom he reports leaving a trail of blood on the carpet and the tile. He denies any abdominal pain or rectal pain. In addition to having 8 colon polyps removed earlier today, he does have a history of hemorrhoids, and did have an issue with them bleeding to a small extent over the past few months, particularly associated with dental issues and not being able to have his usual diet Allergies Allergy/AdvReac Type Severity Reaction Status Date / Time cephalexin Allergy Intermediate RASH Verified 12/23/23 02:41 Penicillins Allergy Intermediate RASH Verified 12/23/23 02:41 Sulfa (Sulfonamide Allergy Intermediate RASH Verified 12/23/23 02:41 Antibiotics) Home Medications Medication Instructions Recorded Confirmed Type multivitamin (Multiple Vitamins 1 tab PO QAM 05/03/19 12/23/23 History tablet) levocetirizine 5 mg tablet (Xyzal) 5 mg PO UD PRN allergy season 03/20/20 12/23/23 History famotidine 20 mg tablet (Pepcid) 20 mg PO UD PRN gerd 07/09/21 12/23/23 History aspirin 81 mg tablet,delayed 81 mg PO QPM 01/08/22 12/23/23 History release (Buddy Low Dose Aspirin) azithromycin 500 mg tablet 500 mg PO ONCE PRN dental 09/18/23 12/23/23 Rx procedure #1 tab carvedilol 6.25 mg tablet 6.25 mg PO BID #180 tabs 11/17/23 12/23/23 Rx imipramine HCl 10 mg tablet 10 mg PO HS #90 tabs 11/17/23 12/23/23 Rx indapamide 1.25 mg tablet 1.25 mg PO QAM #90 tabs 11/17/23 12/23/23 Rx losartan 100 mg tablet 100 mg PO QPM #90 tabs 11/17/23 12/23/23 Rx rosuvastatin 20 mg tablet 20 mg PO QPM #90 tabs 11/17/23 12/23/23 Rx alprazolam 0.5 mg tablet 0.5 mg PO UD PRN anxiety 12/09/23 12/23/23 History Past Med/Surg History Medical History (Updated 12/23/23 @ 05:57 by Jaylen Jj MD) History of colon polyps pt unsure/possible Urinary leakage Right kidney mass hx - sx intervention only. CAD (coronary artery disease) Non-obstructive CAD per 05/07/21 [facility] cardiac cath Diarrhea IBS Diverticular disease GERD (gastroesophageal reflux disease) will take OTC medication PRN History of basal cell carcinoma Anxiety Sensorineural hearing loss (SNHL) of both ears Aortic valve stenosis s/p TAVR 07/2021; follows with Dr. Hylton Dyslipidemia Hypertension Surgical History (Updated 12/23/23 @ 05:57 by Jaylen Jj MD) H/O right nephrectomy (~01/2022) History of cardiac catheterization 04/2021 > no stents History of basal cell carcinoma (BCC) excision S/p TAVR (transcatheter aortic valve replacement), bioprosthetic Bess H/O cataract extraction History of dental surgery History of detached retina repair H/O transurethral resection of prostate (2011) History of colonoscopy (2003) History of hernia repair BL inguinal Family History Unknown Hypertension Coronary arteriosclerosis Other No family history of adverse response to anesthesia Social History Smoking Status: Never smoker Second Hand Exposure: No; Do You Dip or Chew Tobacco: No; Hx Alcohol Use: Yes Alcohol type: wine Hx Substance Use: No Preferred Language: Nigerian Communication Ability: Effective Cranberry Grower Required: No Beliefs That Will Affect Care: None marital status: Current Living Situation: Spouse current occupational status: retired current occupation: Retired Feels Safe at Home: Yes Assistive Devices: Glasses and Hearing Aid - Bilateral Review of Systems Review of Systems: The patient denies chest pain, palpitations, shortness of breath, dyspnea on exertion, cough, lower extremity swelling, sore throat, fevers, chills, sweats, nausea, vomiting, abdominal pain, pelvic pain, blood in urine, dysuria, urinary frequency or urgency, lightheadedness, dizziness, headache, memory loss, loss of consciousness, imbalance, focal weakness, numbness or tingling in arms or legs, generalized arthralgias or myalgias, back or neck pain, or night sweats. The review of systems is otherwise negative other than for that already noted above, and at least 10 systems have been reviewed. Physical Exam Physical Exam: The patient is awake, alert and oriented 3, well developed and well nourished, normocephalic and atraumatic, lying in bed and in no acute distress. HEENT--PERRL, EOMI, mucous membranes and oropharynx dry. Neck--supple. No JVD. No bruits. Thyroid normal, trachea midline, no adenopathy. Heart--normal S1 and S2. No murmurs, rubs or gallops. Lungs--clear bilaterally, no respiratory distress, no accessory muscle use. Abdomen--normal bowel sounds and soft. Nontender. Nondistended, no hernias or masses, no organomegaly. Extremities--no cyanosis or clubbing. No edema. Dermatologic--normal skin turgor, normal color, no abnormal lymph nodes, no rash. Neurologic--cranial nerves II through XII grossly intact. Rheumatologic--normal range of motion. Psychiatric--normal affect. Results & Data Results & Data Vital Signs (Past 12 Hours) Vital Signs Temp Pulse Resp BP Pulse Ox O2 Del Method 12/23/23 05:01 98/65 L 12/23/23 05:01 97 H 24 12/23/23 05:00 96 H 16 12/23/23 04:30 97/79 L 12/23/23 04:30 97 H 15 12/23/23 04:00 92 H 16 12/23/23 04:00 104/74 12/23/23 03:45 92 H 20 12/23/23 03:45 96/74 L 12/23/23 03:30 99/72 L 12/23/23 03:30 94 H 16 12/23/23 03:15 94 H 18 12/23/23 03:15 101/68 12/23/23 03:00 94 H 16 12/23/23 03:00 96/74 L 12/23/23 02:54 117/79 12/23/23 02:51 103/62 12/23/23 02:45 105/69 12/23/23 02:45 90 17 12/23/23 02:31 101/74 04/16/24 02:31 95 H 25 H 12/23/23 02:30 79/50 L 12/23/23 02:30 100 H 20 12/23/23 02:23 99 H 23 97 Room Air 12/23/23 02:22 96 H 18 93 12/23/23 02:22 94/77 L 12/23/23 02:16 105/69 12/23/23 02:16 103 H 22 97 12/23/23 02:15 101 H 21 12/23/23 02:14 99 H 12/23/23 02:13 99 H 19 12/23/23 02:12 36.4 C L 99 H 23 105/69 97 Room Air Laboratory Results Laboratory Results WBC 19.89 K/ul (4.8-10.8) H 12/23/23 02:23 RBC 4.77 M/uL (4.70-6.10) 12/23/23 02:23 Hgb 15.4 g/dl (14.0-18.0) 12/23/23 02:23 Hct 45.8 % (42.0-52.0) 12/23/23 02:23 MCV 96.0 fL (80.0-100.0) 12/23/23 02:23 MCH 32.3 pg (25.0-34.0) 12/23/23 02:23 MCHC 33.6 g/dL (32.0-36.0) 12/23/23 02:23 RDW Std Deviation 48.5 fL (36.4-46.3) H 12/23/23 02:23 RDW Coeff of Kike 13.6 % (11.5-14.5) 12/23/23 02:23 Plt Count 290 K/uL (130-400) 12/23/23 02:23 MPV 10.1 fL (9.4-12.4) 12/23/23 02:23 PT 11.8 Seconds (9.0-12.0) 12/23/23 02:23 INR 1.1 (0.9-1.1) 12/23/23 02:23 APTT 25 Seconds (21-31) 12/23/23 02:23 PTT Ratio 0.9 12/23/23 02:23 Sodium 139 mmol/L (136-145) 12/23/23 02:23 Potassium 4.0 mmol/L (3.5-5.1) 12/23/23 02:23 Chloride 105 mmol/L (98-107) 12/23/23 02:23 Carbon Dioxide 26 mmol/L (21-32) 12/23/23 02:23 Anion Gap 8 (3-11) 12/23/23 02:23 BUN 33 mg/dl (6-23) H 12/23/23 02:23 Creatinine 2.18 mg/dl (0.6-1.4) H 12/23/23 02:23 Est Cr Clr Drug Dosing 25.3 ml/min 12/23/23 02:23 Est GFR ( Amer) 31.5 ml/min 12/23/23 02:23 Est GFR (Non-Af Amer) 27.2 ml/min 12/23/23 02:23 BUN/Creatinine Ratio 15.1 (10-20) 12/23/23 02:23 Glucose 184 mg/dl (70-99(Fasting)) H 12/23/23 02:23 Calcium 9.2 mg/dl (8.6-10.3) 12/23/23 02:23 Total Bilirubin 1.8 mg/dl (0.2-1.0) H 12/23/23 02:23 AST 21 U/L (13-39) 12/23/23 02:23 ALT 16 U/L (7-52) 12/23/23 02:23 Alkaline Phosphatase 58 U/L (34-104) 12/23/23 02:23 Troponin I High Sens 18.2 pg/ml (0-20) 12/23/23 02:23 Total Protein 6.1 gm/dl (6.0-8.3) 12/23/23 02:23 Albumin 3.8 gm/dl (3.4-5.0) 12/23/23 02:23 Globulin 2.3 gm/dl (2.5-4.0) L 12/23/23 02:23 Albumin/Globulin Ratio 1.7 (0.9-2) 12/23/23 02:23 Blood Type O Positive 12/23/23 02:17 Antibody Screen NEGATIVE 12/23/23 02:17 Code Status & VTE Plan Code Status Full code VTE Prophylaxis Plan VTE Prophylaxis will be ordered: Yes PG Care Time/CCT Total # of Minutes Spent Total Time Spent with Patient: Total time spent is greater than 50% in coordination of care (as documented) at patient's floor/unit and/or counseling patient: Coding Level of Care Code 64581 INT INP/OBS CARE 3/75MIN Diagnoses Lower GI bleeding K92.2 Acute kidney injury superimposed on chronic kidney disease N17.9; N18.9 Renal cell carcinoma C64.9 Tubular adenoma of colon D12.6 GERD (gastroesophageal reflux disease) K21.9 CAD (coronary artery disease) I25.10 S/p TAVR (transcatheter aortic valve replacement), bioprosthetic Z95.3 Hypertension I10 Aortic valve stenosis I35.0 H/O right nephrectomy Z90.5 Anxiety F41.9
[2023-12-23] MEDS ORDERED: ACETAMINOPHEN 1000 MG/100 ML IV IV PRN (06:12)
[2023-12-23] MEDS: SODIUM CHLORIDE 0.9% 1,000 ML IV SCH (06:22)
[2023-12-23 07:36] LABS: Hematocrit (blood only) 38.4 % (42.0-52.0); Hemoglobin 12.8 g/dl (14.0-18.0)
[2023-12-23 07:55] LABS: BUN Creatinine Ratio 17.1 (10-20); Calcium 8.2 mg/dl (8.6-10.3); Creatinine Clr Calc Pharmacy 29.5 ml/min; Est GFR (African American) 37.9 ml/min; Est GFR (Non-African American) 32.7 ml/min; Potassium 4.1 mmol/L (3.5-5.1)
--- NOTE | 2023-12-23 09:42 | Gastrointestinal Consultation ---
Date of Consultation December 23, 2023 Assessment & Plan (1) Lower GI bleeding: -NPO -Monitor H/H & vitals -2 fleet enemas now -Proceed with colonoscopy today due to concerns of post-polypectomy bleeding Supervising Physician Co-Signing Physician Notes I saw the patient and agree with the findings as documented by CARLA Mota History of Present Illness Reason for Consultation: Lower GI bleeding Attending Physician: Sunil Mercado MD History of Present Illness Patient is an 83 yo male with PMH of cataracts, GERD, rosacea, BPH, CAD, TAVR, SNHL, HLD, HTN who presents to the ED for lower GI bleeding. He had underwent a colonoscopy on 12/21/22 during which he had numerous polyps removed, with 2 in the cecum being >1 cm. The patient notes he returned home and in the middle of the night he woke up to a significant amount of rectal bleeding. He denies abdominal pain. He returned to the hospital and his H/H went from 15.4/45.8 to 12.8/38.4. He notes he had held his Aspirin for 2 days prior to his procedure. He is NPO this AM except for ice chips. He denies any significant symptoms otherwise. He is not bleeding at the time of my evaluation but has bled intermittently since last night. His BP was 79/50 when he presented to the ED but is now 100/68. Allergies Allergy/AdvReac Type Severity Reaction Status Date / Time cephalexin Allergy Intermediate RASH Verified 12/23/23 02:41 Penicillins Allergy Intermediate RASH Verified 12/23/23 02:41 Sulfa (Sulfonamide Allergy Intermediate RASH Verified 12/23/23 02:41 Antibiotics) Home Medications Medication Instructions Recorded Confirmed Type multivitamin (Multiple Vitamins 1 tab PO QAM 05/03/19 12/23/23 History tablet) levocetirizine 5 mg tablet (Xyzal) 5 mg PO UD PRN allergy season 03/20/20 12/23/23 History famotidine 20 mg tablet (Pepcid) 20 mg PO UD PRN gerd 07/09/21 12/23/23 History aspirin 81 mg tablet,delayed 81 mg PO QPM 01/08/22 12/23/23 History release (Buddy Low Dose Aspirin) azithromycin 500 mg tablet 500 mg PO ONCE PRN dental 09/18/23 12/23/23 Rx procedure #1 tab carvedilol 6.25 mg tablet 6.25 mg PO BID #180 tabs 11/17/23 12/23/23 Rx imipramine HCl 10 mg tablet 10 mg PO HS #90 tabs 11/17/23 12/23/23 Rx indapamide 1.25 mg tablet 1.25 mg PO QAM #90 tabs 11/17/23 12/23/23 Rx losartan 100 mg tablet 100 mg PO QPM #90 tabs 11/17/23 12/23/23 Rx rosuvastatin 20 mg tablet 20 mg PO QPM #90 tabs 11/17/23 12/23/23 Rx alprazolam 0.5 mg tablet 0.5 mg PO UD PRN anxiety 12/09/23 12/23/23 History Patient History Medical History History of colon polyps pt unsure/possible Urinary leakage Right kidney mass hx - sx intervention only. CAD (coronary artery disease) Non-obstructive CAD per 05/07/21 [facility] cardiac cath Diarrhea IBS Diverticular disease GERD (gastroesophageal reflux disease) will take OTC medication PRN History of basal cell carcinoma Anxiety Sensorineural hearing loss (SNHL) of both ears Aortic valve stenosis s/p TAVR 07/2021; follows with Dr. Hylton Dyslipidemia Hypertension Surgical History H/O right nephrectomy (~01/2022) History of cardiac catheterization 04/2021 > no stents History of basal cell carcinoma (BCC) excision S/p TAVR (transcatheter aortic valve replacement), bioprosthetic [place] H/O cataract extraction History of dental surgery History of detached retina repair H/O transurethral resection of prostate (2011) History of colonoscopy (2003) History of hernia repair BL inguinal Family History Unknown Hypertension Coronary arteriosclerosis Other No family history of adverse response to anesthesia Social History Smoking Status: Never smoker Second Hand Exposure: No; Do You Dip or Chew Tobacco: No; Hx Alcohol Use: Yes Alcohol type: beer Hx Substance Use: No Preferred Language: Hungarian Communication Ability: Effective Sewer Pipe Sorter Required: No Beliefs That Will Affect Care: None marital status: Current Living Situation: Spouse current occupational status: retired current occupation: Retired Feels Safe at Home: Yes Safety Concerns: Feels Safe At This Time Assistive Devices: Glasses Review of Systems Constitutional: no fever and no chills Respiratory: no cough and no dyspnea Cardiovascular: no chest pain Gastrointestinal: + blood in stools; no abdominal pain Psychiatric: no problem reported Physical Exam Constitutional: well developed Respiratory: normal respiratory effort Cardiovascular: Rate/Rhythm: regular rate Gastrointestinal (Abdomen): normal bowel sounds, soft, nontender, no hepatosplenomegaly Psychiatric: Orientation: alert and oriented x 3 Results & Data Vital Signs (Past 12 Hours) Vital Signs Temp Pulse Pulse Resp BP BP Pulse Ox 12/23/23 07:00 100/68 12/23/23 07:00 92 H 16 93 12/23/23 07:00 93 H 12/23/23 06:12 78 18 113/53 L 94 12/23/23 06:11 100/74 12/23/23 06:11 76 19 12/23/23 06:10 77 20 12/23/23 05:49 36.8 C 77 14 111/81 95 12/23/23 05:30 91 H 15 93 12/23/23 05:30 111/81 12/23/23 05:01 98/65 L 12/23/23 05:01 97 H 24 12/23/23 05:00 96 H 16 12/23/23 04:30 97/79 L 12/23/23 04:30 97 H 15 12/23/23 04:00 92 H 16 12/23/23 04:00 104/74 12/23/23 03:45 92 H 20 12/23/23 03:45 96/74 L 12/23/23 03:30 99/72 L 12/23/23 03:30 94 H 16 12/23/23 03:15 94 H 18 12/23/23 03:15 101/68 12/23/23 03:00 94 H 16 12/23/23 03:00 96/74 L 12/23/23 02:54 117/79 12/23/23 02:51 103/62 12/23/23 02:45 105/69 12/23/23 02:45 90 17 12/23/23 02:31 101/74 12/23/23 02:31 95 H 25 H 12/23/23 02:30 79/50 L 12/23/23 02:30 100 H 20 12/23/23 02:23 99 H 23 97 12/23/23 02:22 96 H 18 93 12/23/23 02:22 94/77 L 12/23/23 02:16 105/69 12/23/23 02:16 103 H 22 97 12/23/23 02:15 101 H 21 12/23/23 02:14 99 H 12/23/23 02:13 99 H 19 12/23/23 02:12 36.4 C L 99 H 23 105/69 97 O2 Del Method 12/23/23 07:00 12/23/23 07:00 12/23/23 07:00 12/23/23 06:12 Room Air 12/23/23 06:11 12/23/23 06:11 12/23/23 06:10 12/23/23 05:49 Room Air 12/23/23 05:30 12/23/23 05:30 12/23/23 05:01 12/23/23 05:01 12/23/23 05:00 12/23/23 04:30 12/23/23 04:30 12/23/23 04:00 12/23/23 04:00 12/23/23 03:45 12/23/23 03:45 12/23/23 03:30 12/23/23 03:30 12/23/23 03:15 12/23/23 03:15 12/23/23 03:00 12/23/23 03:00 12/23/23 02:54 12/23/23 02:51 12/23/23 02:45 12/23/23 02:45 12/23/23 02:31 12/23/23 02:31 12/23/23 02:30 12/23/23 02:30 12/23/23 02:23 Room Air 12/23/23 02:22 12/23/23 02:22 12/23/23 02:16 12/23/23 02:16 12/23/23 02:15 12/23/23 02:14 12/23/23 02:13 12/23/23 02:12 Room Air PG Care Time/CCT Total # of Minutes Spent Total Time Spent with Patient: Total time spent is greater than 50% in coordination of care (as documented) at patient's floor/unit and/or counseling patient: Coding Level of Care Code 93051 INT INP/OBS CARE 3/75MIN Diagnoses Lower GI bleeding K92.2
--- NOTE | 2023-12-23 09:56 | Anesthesiology Consultation ---
Date of Service December 23, 2023 Assessment & Plan Chart Review Chart Review: data entry manager initiated History Surgery Operation Date: 12/23/23 17:10 Proposed Procedures p Colonoscopy Dr. Leona Delgadillo MD Height/Weight Height: 5 ft 8 in Weight: 80.5 kg Allergies Allergy/AdvReac Type Severity Reaction Status Date / Time cephalexin Allergy Intermediate RASH Verified 12/23/23 02:41 Penicillins Allergy Intermediate RASH Verified 12/23/23 02:41 Sulfa (Sulfonamide Allergy Intermediate RASH Verified 12/23/23 02:41 Antibiotics) Medications Home Medications Medication Instructions Recorded Confirmed Last Taken multivitamin (Multiple Vitamins 1 tab PO QAM 05/03/19 12/23/23 12/22/23 tablet) levocetirizine 5 mg tablet (Xyzal) 5 mg PO UD PRN allergy season 03/20/20 12/23/23 12/21/23 famotidine 20 mg tablet (Pepcid) 20 mg PO UD PRN gerd 07/09/21 12/23/23 02/05/22 05:00 aspirin 81 mg tablet,delayed 81 mg PO QPM 01/08/22 12/23/23 12/22/23 release (Buddy Low Dose Aspirin) azithromycin 500 mg tablet 500 mg PO ONCE PRN dental 09/18/23 12/23/23 Unknown procedure #1 tab carvedilol 6.25 mg tablet 6.25 mg PO BID #180 tabs 11/17/23 12/23/23 12/22/23 09:00 imipramine HCl 10 mg tablet 10 mg PO HS #90 tabs 11/17/23 12/23/23 12/22/23 indapamide 1.25 mg tablet 1.25 mg PO QAM #90 tabs 11/17/23 12/23/23 12/21/23 losartan 100 mg tablet 100 mg PO QPM #90 tabs 11/17/23 12/23/23 12/22/23 rosuvastatin 20 mg tablet 20 mg PO QPM #90 tabs 11/17/23 12/23/23 12/22/23 alprazolam 0.5 mg tablet 0.5 mg PO UD PRN anxiety 12/09/23 12/23/23 12/22/23 09:00 Active Medications Generic Name Dose Route Start Last Admin Trade Name Freq PRN Reason Stop Dose Admin Sodium Chloride 1,000 mls @ 125 mls/hr 12/23/23 06:12 12/23/23 06:22 Nss IV 12/23/23 22:11 125 mls/hr .Q8H LENCHO Administration Past Medical History Medical History History of colon polyps pt unsure/possible Urinary leakage Right kidney mass hx - sx intervention only. CAD (coronary artery disease) Non-obstructive CAD per 05/07/21 [facility] cardiac cath Diarrhea IBS Diverticular disease GERD (gastroesophageal reflux disease) will take OTC medication PRN History of basal cell carcinoma Anxiety Sensorineural hearing loss (SNHL) of both ears Aortic valve stenosis s/p TAVR 07/2021; follows with Dr. Hylton Dyslipidemia Hypertension Past Family History Family History Unknown Hypertension Coronary arteriosclerosis Other No family history of adverse response to anesthesia Past Surgical History Surgical History H/O right nephrectomy (~01/2022) History of cardiac catheterization 04/2021 > no stents History of basal cell carcinoma (BCC) excision S/p TAVR (transcatheter aortic valve replacement), bioprosthetic [place] H/O cataract extraction History of dental surgery History of detached retina repair H/O transurethral resection of prostate (2011) History of colonoscopy (2003) History of hernia repair BL inguinal Social History Smoking Status: Never smoker Do You Dip or Chew Tobacco: No Hx Alcohol Use: Yes Alcohol type: beer alcohol intake frequency: holidays/special occasions only Hx Substance Use: No substance use type: does not use Physical Exam Vital Signs Last Vital Signs Temp 98.2 F 12/23/23 05:49 Pulse 92 H 12/23/23 07:00 Resp 16 12/23/23 07:00 BP 100/68 12/23/23 07:00 Pulse Ox 93 12/23/23 07:00 O2 Del Method Room Air 12/23/23 06:12 Testing Laboratory Results 12/23/23 07:13 12/23/23 07:13 PT 11.8 Seconds (9.0-12.0) 12/23/23 02:23 INR 1.1 (0.9-1.1) 12/23/23 02:23 APTT 25 Seconds (21-31) 12/23/23 02:23 Blood Type O Positive 12/23/23 02:17 Antibody Screen NEGATIVE 12/23/23 02:17 Electrocardiogram Date: 12/23/23 Normal sinus rhythm, rate 98 bpm Left axis deviation Pulmonary disease pattern Inferior infarct , age undetermined Abnormal ECG No previous ECGs available Other Testing Echocardiogram Date: 10/17/23 EF: 60-55 Other Findings: + LVH (moderate concentric;) s/p TAVR with appropriate transvalvular gradient/velocity; Stress Test Date: 04/10/20 Type: exercise Negative exercise stress echo/ECG for ischemia at > 100% MPHR. 10.1 METS. Other Testing 10/26/23: Cardiac Event monitor: predominantly sinus rhythm w/ avg HR 77 bpm; Nonsustained atrial tachycardia up to 27 beat duration; nonsustained Vtac up to 7 beats duration; very frequent PVCs; frequent SVT ectopic events (anxiety/tired/fatigue);
[2023-12-23] MEDS: SOD PHOSPHATE/SOD BIPHOSPHATE ENEMA 132 ML BTL PR STA ×2 (10:10→10:25)
[2023-12-23] MEDS: SODIUM CHLORIDE 0.9% 500 ML IV SCH (11:17)
--- NOTE | 2023-12-23 12:08 | Anesthesiology Progress Note ---
Date of Service December 23, 2023 Anesthesia Post Procedure Vital Signs Vital Signs: Temp Pulse Pulse Pulse Resp BP BP 12/23/23 12:02 86 14 94/52 L 12/23/23 11:05 99.0 F 100 H 18 134/68 12/23/23 10:16 12/23/23 10:16 75 18 126/83 12/23/23 10:00 74 15 111/77 12/23/23 09:00 12/23/23 09:00 74 22 100/63 12/23/23 08:00 12/23/23 08:00 70 18 97/57 L 12/23/23 07:00 100/68 12/23/23 07:00 92 H 16 12/23/23 07:00 93 H 12/23/23 06:12 78 18 113/53 L 12/23/23 06:11 100/74 12/23/23 06:11 76 19 12/23/23 06:10 77 20 12/23/23 05:49 98.2 F 77 14 111/81 12/23/23 05:30 91 H 15 12/23/23 05:30 111/81 12/23/23 05:01 98/65 L 12/23/23 05:01 97 H 24 12/23/23 05:00 96 H 16 12/23/23 04:30 97/79 L 12/23/23 04:30 97 H 15 12/23/23 04:00 92 H 16 12/23/23 04:00 104/74 12/23/23 03:45 92 H 20 12/23/23 03:45 96/74 L 12/23/23 03:30 99/72 L 12/23/23 03:30 94 H 16 12/23/23 03:15 94 H 18 12/23/23 03:15 101/68 12/23/23 03:00 94 H 16 12/23/23 03:00 96/74 L 12/23/23 02:54 117/79 12/23/23 02:51 103/62 12/23/23 02:45 105/69 12/23/23 02:45 90 17 12/23/23 02:31 101/74 12/23/23 02:31 95 H 25 H 12/23/23 02:30 79/50 L 12/23/23 02:30 100 H 20 12/23/23 02:23 99 H 23 12/23/23 02:22 96 H 18 12/23/23 02:22 94/77 L 12/23/23 02:16 105/69 12/23/23 02:16 103 H 22 12/23/23 02:15 101 H 21 12/23/23 02:14 99 H 12/23/23 02:13 99 H 19 12/23/23 02:12 97.5 F L 99 H 23 105/69 Pulse Ox O2 Del Method 12/23/23 12:02 92 Room Air 12/23/23 11:05 97 Room Air 12/23/23 10:16 98 12/23/23 10:16 12/23/23 10:00 96 12/23/23 09:00 98 12/23/23 09:00 12/23/23 08:00 94 12/23/23 08:00 12/23/23 07:00 12/23/23 07:00 93 12/23/23 07:00 12/23/23 06:12 94 Room Air 12/23/23 06:11 12/23/23 06:11 12/23/23 06:10 12/23/23 05:49 95 Room Air 12/23/23 05:30 93 12/23/23 05:30 12/23/23 05:01 12/23/23 05:01 12/23/23 05:00 12/23/23 04:30 12/23/23 04:30 12/23/23 04:00 12/23/23 04:00 12/23/23 03:45 12/23/23 03:45 12/23/23 03:30 12/23/23 03:30 12/23/23 03:15 12/23/23 03:15 12/23/23 03:00 12/23/23 03:00 12/23/23 02:54 12/23/23 02:51 12/23/23 02:45 12/23/23 02:45 12/23/23 02:31 12/23/23 02:31 12/23/23 02:30 12/23/23 02:30 12/23/23 02:23 97 Room Air 12/23/23 02:22 93 12/23/23 02:22 12/23/23 02:16 12/23/23 02:16 97 12/23/23 02:15 12/23/23 02:14 12/23/23 02:13 12/23/23 02:12 97 Room Air Transfer of Care Handoff Completed per policy Notes Mental Status: alert / awake / arousable and participated in evaluation Patient Amnestic to Procedure: Yes Nausea / Vomiting: adequately controlled Pain: adequately controlled Airway Patency, RR, SpO2: stable & adequate BP & HR: stable & adequate Hydration State: stable & adequate Anesthetic Complications: no major complications apparent and Pt Satisfied with anesthetic care
--- NOTE | 2023-12-23 12:15 | GI REPORT ---
Patient Name: Gerry Redd Procedure Date: 12/23/2023 11:27 AM Date of : 1940 Admit Type: Inpatient Age: 83 Gender: Male Attending MD: Joe Delgadillo MD, Procedure: Colonoscopy Providers: Joe Delgadillo MD Referring MD: Pk Hollingsworth Indications: Hematochezia Medicines: Monitored Anesthesia Care Complications: No immediate complications. Estimated blood loss: None. Estimated Blood Loss: Estimated blood loss: none. Procedure: Pre-Anesthesia Assessment: - Prior Anticoagulants: The patient has taken no anticoagulant or antiplatelet agents. - ASA Grade Assessment: III - A patient with severe systemic disease. After I obtained informed consent, the scope was passed under direct vision. Throughout the procedure, the patient's blood pressure, pulse, and oxygen saturations were monitored continuously. The Colonoscope was introduced through the anus and advanced to the cecum, identified by appendiceal orifice and ileocecal valve. The colonoscopy was performed without difficulty. The patient tolerated the procedure well. The quality of the bowel preparation was fair. Findings: A 5 mm polyp was found in the transverse colon. The polyp was sessile. The polyp was removed with a cold snare. Resection and retrieval were complete. Estimated blood loss: none. Multiple small and large-mouthed diverticula were found in the sigmoid colon, descending colon and transverse colon. A single (solitary) ulcer was found in the cecum at polypectomy site with a blood clot present. No bleeding was present. Stigmata of recent bleeding were present. For hemostasis, one hemostatic clip was successfully placed. Clip teen counselor: CM Sistemi. There was no bleeding at the end of the procedure. A single (solitary) ulcer was found in the cecum at polypectomy site. No bleeding was present. No stigmata of recent bleeding were seen. For hemostasis, one hemostatic clip was successfully placed. Clip teen counselor: CM Sistemi. There was no bleeding at the end of the procedure. Impression: - Preparation of the colon was fair. - One 5 mm polyp in the transverse colon, removed with a cold snare. Resected and retrieved. - Diverticulosis in the sigmoid colon, in the descending colon and in the transverse colon. - A single (solitary) ulcer in the cecum. Clip was placed. Clip teen counselor: CM Sistemi. - A single (solitary) ulcer in the cecum. Clip was placed. Clip teen counselor: CM Sistemi. -postpolypectomy gi bleed s/p tx Recommendation: - Discharge patient to home (with escort). - Resume previous diet today. - Await pathology results. Joe Delgadillo MD 12/23/2023 12:15:01 PM This report has been signed electronically. Note Initiated On: 12/23/2023 11:27 AM Number of Addenda: 0 I attest to the content of the Intraoperative Record and orders documented therein, exceptions below {[id number]}
--- NOTE | 2023-12-23 13:27 | Electrocardiogram Report ---
Test Reason : Blood Pressure : / mmHG Vent. Rate : 098 BPM Atrial Rate : 098 BPM P-R Int : 168 ms QRS Dur : 082 ms QT Int : 372 ms P-R-T Axes : 001 -33 067 degrees QTc Int : 474 ms Normal sinus rhythm Left axis deviation possible Inferior infarct , age undetermined Poor R wave progression, consider anterior [place] vs. lead placement vs. LVH Abnormal ECG No previous ECGs available Confirmed by Christiano Mooney ([id number]) on 12/23/2023 1:27:21 PM Referred By: REFERRED SELF Confirmed By:Pio Mooney
--- NOTE | 2023-12-23 15:01 | Hospitalist Progress Note ---
Date of Service December 23, 2023 Assessment & Plan (1) Lower GI bleeding: Plan: After colonoscopy and polypectomy completed December 21. Bleeding started last night. He underwent colonoscopy again today, December 22, and was found to have stigmata of recent bleeding in the cecal area from one of the polypectomy sites. This was clipped. Appreciate gastroenterology consultation and recommendations. Fortunately he has not required blood transfusion yet (2) Acute kidney injury superimposed on chronic kidney disease: Plan: Monitor intake and output. Serial labs. (3) Renal cell carcinoma: Plan: Past history of right nephrectomy. No intervention necessary at this time (4) GERD (gastroesophageal reflux disease): Plan: Stable. PPI therapy (5) CAD (coronary artery disease): Plan: Stable. Continue current medical management (6) S/p TAVR (transcatheter aortic valve replacement), bioprosthetic: Plan: Stable. Continue current medical manage (7) Hypertension: Plan: Stable. Continue current medical manage Plan Hopeful discharge to home tomorrow, December 23 Admission and Anticipated Discharge Date Admission Date: December 23, 2023 Subjective The patient was seen by me earlier today, December 22, before the colonoscopy was performed. Yesterday, on December 21, he had multiple polyps removed from the colon and then developed a lower GI bleed last evening. Fortunately, his hemoglobin is stable. He underwent colonoscopy again today and was found to have stigmata of recent bleeding from one of the polypectomy sites in the cecal region which was clipped. Hopefully this will stop the bleeding and he can go home tomorrow, December 23 Review of Systems 2 Review of Systems: Constitutional-no fever or chills ENT-no blurred vision, no double vision, no epistaxis, no sore throat Respiratory-no cough, no wheezing, no shortness of breath Cardiac-no palpitations, no chest pain, no syncope GI-no nausea, vomiting, diarrhea, melena. He did have bloody discharge from the rectum last evening -no urinary retention, no urinary incontinence, no dysuria, no hematuria Musculoskeletal-no joint pain, no muscle tenderness Skin-no bruising, no rashes, no pruritus Neuro-no isolated weakness, no paresthesia, no weakness Psych-no depression, no anxiety Physical Exam 2 Physical Exam: General-alert and oriented x3, no fever, no chills HEENT-head atraumatic and normocephalic, pupils equal and reactive to light, extraocular muscles intact Neck-no lymphadenopathy or thyromegaly, trachea midline Chest-clear to auscultation. No rales, wheezing or rhonchi Cardiac-regular rate and rhythm, normal S1 and S2 Abdomen-normal bowel sounds, nontender, no hepatosplenomegaly Extremities-no cyanosis, clubbing, or edema Neuro-cranial nerves II through XII intact, motor and sensory function within normal limits, strength symmetrical, no focal deficits Psych-normal affect, normal mood Results & Data Results & Data Vital Signs (Past 12 Hours) Vital Signs Temp Pulse Pulse Pulse Resp BP BP 12/23/23 12:32 88 16 124/75 12/23/23 12:17 88 16 109/71 12/23/23 12:02 86 14 94/52 L 12/23/23 11:05 37.2 C 100 H 18 134/68 12/23/23 10:16 12/23/23 10:16 75 18 126/83 12/23/23 10:00 74 15 111/77 12/23/23 09:00 12/23/23 09:00 74 22 100/63 12/23/23 08:00 12/23/23 08:00 70 18 97/57 L 12/23/23 07:00 100/68 12/23/23 07:00 92 H 16 12/23/23 07:00 93 H 12/23/23 06:12 78 18 113/53 L 12/23/23 06:11 100/74 12/23/23 06:11 76 19 12/23/23 06:10 77 20 12/23/23 05:49 36.8 C 77 14 111/81 12/23/23 05:30 91 H 15 12/23/23 05:30 111/81 12/23/23 05:01 98/65 L 12/23/23 05:01 97 H 24 12/23/23 05:00 96 H 16 12/23/23 04:30 97/79 L 12/23/23 04:30 97 H 15 12/23/23 04:00 92 H 16 12/23/23 04:00 104/74 12/23/23 03:45 92 H 20 12/23/23 03:45 96/74 L 12/23/23 03:30 99/72 L 12/23/23 03:30 94 H 16 12/23/23 03:15 94 H 18 12/23/23 03:15 101/68 12/23/23 03:00 94 H 16 12/23/23 03:00 96/74 L Pulse Ox O2 Del Method 12/23/23 12:32 96 Room Air 12/23/23 12:17 93 Room Air 12/23/23 12:02 92 Room Air 12/23/23 11:05 97 Room Air 12/23/23 10:16 98 12/23/23 10:16 12/23/23 10:00 96 12/23/23 09:00 98 12/23/23 09:00 12/23/23 08:00 94 12/23/23 08:00 12/23/23 07:00 12/23/23 07:00 93 12/23/23 07:00 12/23/23 06:12 94 Room Air 12/23/23 06:11 12/23/23 06:11 12/23/23 06:10 12/23/23 05:49 95 Room Air 12/23/23 05:30 93 12/23/23 05:30 12/23/23 05:01 12/23/23 05:01 12/23/23 05:00 12/23/23 04:30 12/23/23 04:30 12/23/23 04:00 12/23/23 04:00 12/23/23 03:45 12/23/23 03:45 12/23/23 03:30 12/23/23 03:30 12/23/23 03:15 12/23/23 03:15 12/23/23 03:00 12/23/23 03:00 Laboratory Results 12/23/23 07:13 12/23/23 07:13 PG Care Time/CCT Total # of Minutes Spent Total Time Spent with Patient: Total time spent is greater than 50% in coordination of care (as documented) at patient's floor/unit and/or counseling patient: Coding Level of Care Code 41486 SUB INP/OBS CARE 3/50MIN Diagnoses Lower GI bleeding K92.2 Acute kidney injury superimposed on chronic kidney disease N17.9; N18.9 Renal cell carcinoma C64.9 GERD (gastroesophageal reflux disease) K21.9 CAD (coronary artery disease) I25.10 S/p TAVR (transcatheter aortic valve replacement), bioprosthetic Z95.3 Hypertension I10
[2023-12-23] MEDS: PROPOFOL IV EMULSION 10 MG/ML 20 ML VIAL IV ONE (15:09)
[2023-12-23] MEDS ORDERED: Nursing to Pharmacy Communication SCH (15:30)
[2023-12-23 15:49] LABS: BUN Creatinine Ratio 18.5 (10-20); Creatinine Clr Calc Pharmacy 32.8 ml/min; Est GFR (African American) 43.2 ml/min; Est GFR (Non-African American) 37.3 ml/min; Potassium 3.5 mmol/L (3.5-5.1)
[2023-12-23] MEDS: PANTOprazole 40 MG in SYRINGE 0 ML IV SCH (16:00)
[2023-12-23 19:59] LABS: Hematocrit (blood only) 33.9 % (42.0-52.0); Hemoglobin 11.5 g/dl (14.0-18.0)
[2023-12-23 20:18] LABS: BUN Creatinine Ratio 17.5 (10-20); Calcium 7.8 mg/dl (8.6-10.3); Creatinine Clr Calc Pharmacy 34.4 ml/min; Est GFR (African American) 45.8 ml/min; Est GFR (Non-African American) 39.5 ml/min; Potassium 3.2 mmol/L (3.5-5.1)
[2023-12-24 01:37] LABS: BUN Creatinine Ratio 15.9 (10-20); Creatinine Clr Calc Pharmacy 36.5 ml/min; Est GFR (African American) 49.1 ml/min; Est GFR (Non-African American) 42.4 ml/min; Potassium 3.4 mmol/L (3.5-5.1)
[2023-12-24] MEDS: CIPROFLOXACIN / D5W 400 MG/200 ML BAG IV SCH (04:25)
[2023-12-24 07:49] LABS: Basophils # (auto) 0.03 K/uL (0.00-0.20); Basophils % (auto) 0.3 %; Eosinophils # (auto) 0.36 K/uL (0.00-0.50); Eosinophils % (auto) 3.6 %; Hematocrit (blood only) 35.1 % (42.0-52.0); Hemoglobin 11.7 g/dl (14.0-18.0); Immature Granulocytes # (auto) 0.04 K/uL (0.01-0.20); Immature Granulocytes % (auto) 0.4 %; Lymphocytes # (auto) 1.38 K/uL (1.20-3.40); Lymphocytes % (auto) 13.9 %; Mean Corpuscular Hemoglobin 32.7 pg (25.0-34.0); Mean Corpuscular Hgb Conc 33.3 g/dL (32.0-36.0); Mean Platelet Volume 10.2 fL (9.4-12.4); Monocytes # (auto) 1.02 K/uL (0.11-0.59); Monocytes % (auto) 10.3 %; Neutrophils # (auto) 7.08 K/uL (1.40-6.50); Neutrophils % (auto) 71.5 %; Platelet Count 203 K/uL (130-400); RDW Coefficient of Variation 13.7 % (11.5-14.5); RDW Standard Deviation 48.9 fL (36.4-46.3); Red Blood Count 3.58 M/uL (4.70-6.10); White Blood Count 9.91 K/ul (4.8-10.8)
[2023-12-24] MEDS: POTASSIUM CHLORIDE CRTAB 20 MEQ TABCR PO STA (09:11)
--- NOTE | 2023-12-24 11:07 | Discharge Summary ---
Date of Service December 24, 2023 Admission HPI Per Admitting Provider The patient is an 83-year-old male with a past medical history including renal cell carcinoma status post nephrectomy, tubular adenoma of colon, GERD, anxiety, BPH, CAD, status post TAVR, SNHL bilaterally, dyslipidemia, hypertension and aortic valve stenosis. The patient underwent a colonoscopy earlier in the day on 12/21, which she tolerated well, and reportedly had 8 polyps removed. Patient reports while sleeping this evening, he became aware of his bed being soaked with blood, and as he walked to the bathroom he reports leaving a trail of blood on the carpet and the tile. He denies any abdominal pain or rectal pain. In addition to having 8 colon polyps removed earlier today, he does have a history of hemorrhoids, and did have an issue with them bleeding to a small extent over the past few months, particularly associated with dental issues and not being able to have his usual diet Principal Diagnosis Lower GI bleeding from recent colon polypectomy site, acute blood loss anemia Discharge Exam General-alert and oriented x3, no fever, no chills HEENT-head atraumatic and normocephalic, pupils equal and reactive to light, extraocular muscles intact Neck-no lymphadenopathy or thyromegaly, trachea midline Chest-clear to auscultation. No rales, wheezing or rhonchi Cardiac-regular rate and rhythm, normal S1 and S2 Abdomen-normal bowel sounds, nontender, no hepatosplenomegaly Extremities-no cyanosis, clubbing, or edema Neuro-cranial nerves II through XII intact, motor and sensory function within n ormal limits, strength symmetrical, no focal deficits Psych-normal affect, normal mood Discharge Data Allergies Allergy/AdvReac Type Severity Reaction Status Date / Time cephalexin Allergy Intermediate RASH Verified 12/23/23 02:41 Penicillins Allergy Intermediate RASH Verified 12/23/23 02:41 Sulfa (Sulfonamide Allergy Intermediate RASH Verified 12/23/23 02:41 Antibiotics) Consultations 12/23/23 03:40 ED Decision to Admit Stat 12/23/23 07:04 Consult Gastroenterology Routine Procedures Performed Operation Date: 12/23/23 17:10 Actual Procedures p Colonoscopy Polypectomy - Joe Delgadillo MD Hospital Course (1) Lower GI bleeding: After colonoscopy and polypectomy completed December 21. Bleeding started the night prior to this admission. He underwent colonoscopy again on December 22, and was found to have stigmata of recent bleeding in the cecal area from one of the polypectomy sites. This was clipped. Appreciate gastroenterology consultation and recommendations. His blood count has decreased somewhat but he has not required transfusion fortunately. (2) Acute blood loss anemia: Due to lower GI bleeding. Now stabilized. He has not required blood transfusion (3) Renal cell carcinoma: Past history of right nephrectomy. No intervention necessary at this time (4) GERD (gastroesophageal reflux disease): Stable. PPI therapy (5) CAD (coronary artery disease): Stable. Continue current medical management (6) S/p TAVR (transcatheter aortic valve replacement), bioprosthetic: Stable. Continue current medical manage (7) Hypertension: Stable. Continue current medical manage Plan Home today, December 23. Total Time Total Time Spent Total Time Spent (In Minutes): 45-minute Discharge Plan Discharge Items Patient Disposition: Home - Self-Care Reason For Visit: LOWER GI BLEED Discharge Diagnosis: Lower GI bleeding from recent colon polypectomy site, acute blood loss anemia Activity: Resume your previous activity Non-emergency contact: Primary Care Provider and Heavy Line Technician Call non-emergency contact if: your symptoms worsen Follow-up/Referrals: Pk Schumacher MD [Primary Care Provider] - Diet: Regular and Heart Healthy Addtl Attending Provider Instructions: Follow-up with gastroenterology as scheduled Pending Studies at Discharge: No Stand-Alone Forms: My [facility] [employer], Smoking Cessation Medications and DC Order Prescriptions: Continued azithromycin 500 mg tablet 500 mg PO ONCE PRN (Reason: dental procedure) Qty: 1 5RF Rx Instructions: Take 30-60 minutes prior to dental procedure/cleaning. levocetirizine [Xyzal] 5 mg tablet 5 mg PO UD PRN (Reason: allergy season) multivitamin [Multiple Vitamins] tablet 1 tab PO QAM famotidine [Pepcid] 20 mg tablet 20 mg PO UD PRN (Reason: gerd) Patient Comments: rare carvedilol 6.25 mg tablet 6.25 mg PO BID Qty: 180 3RF imipramine HCl 10 mg tablet 10 mg PO HS Qty: 90 3RF Patient Comments: for urinary leakage indapamide 1.25 mg tablet 1.25 mg PO QAM Qty: 90 3RF Rx Instructions: WAS HELD FOR PROCEDURE-12/22/23 losartan 100 mg tablet 100 mg PO QPM Qty: 90 3RF rosuvastatin 20 mg tablet 20 mg PO QPM Qty: 90 3RF aspirin [Buddy Low Dose Aspirin] 81 mg tablet,delayed release (DR/EC) 81 mg PO QPM alprazolam 0.5 mg tablet 0.5 mg PO UD PRN (Reason: anxiety) Patient Comments: rare Discharge Orders: Discharge Order (Routine); Ordered 12/24/23 Ordered By: Sunil Mercado Admission Data Admit Date/Time: 12/23/23 04:51 Attending Provider: Sunil Mercado Admit Provider: Jaylen Jj Primary Care Provider: Pk Schumacher Other Providers: Jaylen Jj; Joe Delgadillo Coding Level of Care Code 09065 INP/OBS DISCH >30 MIN Diagnoses Lower GI bleeding K92.2 Acute blood loss anemia D62 Renal cell carcinoma C64.9 GERD (gastroesophageal reflux disease) K21.9 CAD (coronary artery disease) I25.10 S/p TAVR (transcatheter aortic valve replacement), bioprosthetic Z95.3 Hypertension I10
== END 2023-12-24 12:36 | disposition home or self-care (01) | DRG 919 ==
LOC: ED 02:09 → EDINP 04:51 → SUATTDRO 04:51 → 2S 14:08